=== PATIENT | female | born 1945 | race Caucasian/White ===

== ENCOUNTER 2017-01-11 08:58 | Outpatient (CLI) | payer MEDICARE, OTHER | END 2017-01-11 08:59 | disposition home or self-care (01) | LOC: NS 08:58 | PROVIDERS: ATTEND Internal Medicine | DX: Z71.3 Dietary counseling and surveillance (principal); E11.9 Type 2 diabetes mellitus without complications; Z68.38 Body mass index [BMI] 38.0-38.9, adult | CPT/HCPCS: 97802 ==

== ENCOUNTER 2017-08-20 16:57 | Outpatient (CLI) | payer MEDICARE, OTHER ==
[2017-08-20 18:05] LABS: BASOPHILS % (AUTO) 0.3 %; EOSINOPHILS # (AUTO) 0.1 10^3/uL (0.0-0.7); EOSINOPHILS % (AUTO) 1.7 %; HGB - HEMOGLOBIN 14.2 g/dL (12.0-16.0); LYMPHOCYTES # (AUTO) 1.8 10^3/uL (1.5-3.5); LYMPHOCYTES % (AUTO) 26.9 %; MEAN CORPUSCULAR HEMOGLOBIN 34.7 pg (27.0-31.0); MEAN CORPUSCULAR HGB CONC 34.8 g/dL (32.0-36.0); MEAN CORPUSCULAR VOLUME 99.7 fL (81.0-99.0); MEAN PLATELET VOLUME 9.4 fL (7.9-10.8); MONOCYTES # (AUTO) 0.6 10^3/uL (0.0-1.0); NEUTROPHILS # (AUTO) 4.2 10^3/uL (1.5-6.6); NEUTROPHILS % (AUTO) 62.1 %; PLT - PLATELET COUNT 127 10^3/uL (130-450); RED BLOOD COUNT 4.08 10^6/uL (4.20-5.40); RED CELL DISTRIBUTION WIDTH 14.1 % (12.0-15.0); WHITE BLOOD COUNT 6.8 x10^3/uL (4.8-10.8)
[2017-08-20 18:16] LABS: ALBUMIN 3.8 g/dL (3.2-5.5); ALBUMIN/GLOBULIN RATIO 1.1 (1.0-2.2); BILIRUBIN,TOTAL 1.1 mg/dL (0.2-1.0); CALCIUM 9.4 mg/dL (8.5-10.3); CREATININE 0.7 mg/dL (0.4-1.0); TOTAL PROTEIN 7.3 g/dL (6.7-8.2)
[2017-08-20 18:47] LABS: HB2 TOTAL 15.4 g/dL; HEMOGLOBIN A1C 1.34 g/dL; HEMOGLOBIN A1C % 10.1 % (4.6-6.2)
[2017-08-20 19:35] LABS: THYROID STIMULATING HORMONE 1.84 uIU/mL (0.34-5.60)
== END 2017-08-20 16:58 | disposition home or self-care (01) ==
LOC: LAB 16:57
PROVIDERS: ATTEND Internal Medicine
DX: R60.9 Edema, unspecified (principal); E11.9 Type 2 diabetes mellitus without complications; R06.00 Dyspnea, unspecified; R63.5 Abnormal weight gain; G62.9 Polyneuropathy, unspecified; R20.2 Paresthesia of skin; I10 Essential (primary) hypertension; R06.01 Orthopnea
CPT/HCPCS: 36415; 80053; 82607; 83036; 83880; 84443; 85025

== ENCOUNTER 2018-09-09 17:20 | Outpatient (CLI) | payer MEDICARE, OTHER ==
--- NOTE | 2018-09-10 10:05 | XRAY Report ---
Reason: HEMOPTYSIS Procedure Date: 09/09/2018 Accession Number: [id number] / [id number] Procedure: XR - Chest 2 View X-Ray CPT Code: 36569 FULL RESULT: EXAM: CHEST RADIOGRAPHY EXAM DATE: 09/09/2018 05:39 PM. CLINICAL HISTORY: Hemoptysis. COMPARISON: XR CHEST PA AND LAT 12/31/2008 10:32 AM. TECHNIQUE: 2 views. FINDINGS: Lungs/Pleura: Linear appearing density in the posterior lung base on lateral view, nonspecific but favor appearance of subsegmental atelectasis. No pleural effusion. No pneumothorax. Normal volumes. Mediastinum: The cardiac silhouette is enlarged, new compared to 2008. Other: None. IMPRESSION: Interval development of cardiomegaly. Linear airspace opacities at the lung base posteriorly, atelectasis versus less likely early airspace disease. RADIA
== END 2018-09-09 17:21 | disposition home or self-care (01) ==
LOC: DI 17:20
PROVIDERS: ATTEND Internal Medicine
DX: R04.2 Hemoptysis (principal); R91.8 Other nonspecific abnormal finding of lung field; I51.7 Cardiomegaly
CPT/HCPCS: 71046

== ENCOUNTER 2018-10-14 12:12 | Outpatient (CLI) | payer MEDICARE, OTHER ==
[2018-10-14 12:44] LABS: BASOPHILS % (AUTO) 0.5 %; EOSINOPHILS # (AUTO) 0.3 10^3/uL (0.0-0.7); EOSINOPHILS % (AUTO) 4.2 %; HGB - HEMOGLOBIN 13.4 g/dL (12.0-16.0); LYMPHOCYTES # (AUTO) 1.5 10^3/uL (1.5-3.5); LYMPHOCYTES % (AUTO) 22.9 %; MEAN CORPUSCULAR HEMOGLOBIN 33.3 pg (27.0-31.0); MEAN CORPUSCULAR VOLUME 97.8 fL (81.0-99.0); MEAN PLATELET VOLUME 10.5 fL (7.9-10.8); MONOCYTES # (AUTO) 0.7 10^3/uL (0.0-1.0); MONOCYTES % (AUTO) 9.9 %; NEUTROPHILS # (AUTO) 4.1 10^3/uL (1.5-6.6); NEUTROPHILS % (AUTO) 62.2 %; PLT - PLATELET COUNT 134 10^3/uL (130-450); RED BLOOD COUNT 4.03 10^6/uL (4.20-5.40); RED CELL DISTRIBUTION WIDTH 13.7 % (12.0-15.0); WHITE BLOOD COUNT 6.6 x10^3/uL (4.8-10.8)
[2018-10-14 13:03] LABS: ALBUMIN 3.9 g/dL (3.2-5.5); ALBUMIN/GLOBULIN RATIO 1.1 (1.0-2.2); BILIRUBIN,TOTAL 1.4 mg/dL (0.2-1.0); CALCIUM 9.3 mg/dL (8.5-10.3); CREATININE 0.7 mg/dL (0.4-1.0); TOTAL PROTEIN 7.6 g/dL (6.7-8.2)
[2018-10-14 13:09] LABS: HB2 TOTAL 15.2 g/dL; HEMOGLOBIN A1C 1.16 g/dL; HEMOGLOBIN A1C % 9.1 % (4.6-6.2)
[2018-10-14 13:51] LABS: THYROID STIMULATING HORMONE 3.15 uIU/mL (0.34-5.60)
[2018-10-14 14:25] LABS: BILIRUBIN,URINE NEGATIVE (NEGATIVE); GLUCOSE, URINE (UA) NEGATIVE (NEGATIVE); KETONES,URINE (UA) NEGATIVE (NEGATIVE); LEUKOCYTE ESTERASE, URINE NEGATIVE (NEGATIVE); NITRITE,URINE NEGATIVE (NEGATIVE); OCCULT BLOOD,URINE TRACE-INTA (NEGATIVE); PROTEIN,URINE NEGATIVE (NEGATIVE); UROBILINOGEN,URINE 0.2 (NORMAL) E.U./dL (NORMAL)
[2018-10-14 14:30] LABS: CLARITY,URINE CLEAR (CLEAR)
== END 2018-10-14 12:13 | disposition home or self-care (01) ==
LOC: LAB 12:12
PROVIDERS: ATTEND Internal Medicine
DX: R60.9 Edema, unspecified (principal); E11.9 Type 2 diabetes mellitus without complications; Z79.899 Other long term (current) drug therapy
CPT/HCPCS: 36415; 80053; 81001; 81003; 82607; 83036; 83880; 84443; 85025; 87086

== ENCOUNTER 2019-04-15 13:14 | Outpatient (CLI) | payer MEDICARE, OTHER | END 2019-04-15 13:15 | disposition home or self-care (01) | LOC: DI 13:14 | PROVIDERS: ATTEND Internal Medicine | DX: I27.20 Pulmonary hypertension, unspecified (principal); I50.40 Unspecified combined systolic (congestive) and diastolic (congestive) heart failure | CPT/HCPCS: 93306 ==

== ENCOUNTER 2019-09-08 16:35 | Inpatient (IN) | payer MEDICARE, OTHER ==
[2019-09-08 17:24] LABS: BASOPHILS % (AUTO) 0.4 %; EOSINOPHILS % (AUTO) 0.4 %; HGB - HEMOGLOBIN 9.8 g/dL (12.0-16.0); LYMPHOCYTES # (AUTO) 1.7 10^3/uL (1.5-3.5); LYMPHOCYTES % (AUTO) 16.8 %; MEAN CORPUSCULAR HEMOGLOBIN 32.7 pg (27.0-31.0); MEAN PLATELET VOLUME 10.6 fL (7.9-10.8); MONOCYTES # (AUTO) 0.9 10^3/uL (0.0-1.0); MONOCYTES % (AUTO) 8.2 %; NEUTROPHILS # (AUTO) 7.6 10^3/uL (1.5-6.6); NEUTROPHILS % (AUTO) 73.7 %; PLT - PLATELET COUNT 165 10^3/uL (130-450); RED CELL DISTRIBUTION WIDTH 14.4 % (12.0-15.0); WHITE BLOOD COUNT 10.3 x10^3/uL (4.8-10.8)
[2019-09-08 17:31] LABS: INR 1.4 (0.8-1.2); PT - PROTHROMBIN TIME 16.1 secs (9.9-12.6)
[2019-09-08 17:35] LABS: BILIRUBIN,TOTAL 1.4 mg/dL (0.2-1.0); CALCIUM 8.3 mg/dL (8.5-10.3); CREATININE 0.9 mg/dL (0.4-1.0); TOTAL PROTEIN 6.1 g/dL (6.7-8.2)
[2019-09-08 17:39] LABS: PARTIAL THROMBOPLASTIN TIME 27.5 secs (24.9-33.3)
--- NOTE | 2019-09-08 17:39 | ED Physician Documentation ---
History of Present Illness - Stated complaint Stated Complaint: BLOODY STOOLS - Chief complaint Chief Complaint: Abd Pain - History obtained from History obtained from: Patient - History of Present Illness Timing: Prior to arrival, How many hours ago (10) Pain level max: 0 Pain level now: 0 - Additonal information Additional information: 74-year-old female presents to the emergency department at the behest of her primary care provider when she presented for acute onset black and bloody stools that began this a.m. Per patient she had been in usual state of health without fevers when she began to have some mild abdominal discomfort and nausea and then began having black and now frankly bloody loose stools Patient has never had loose stools like this before she has a remote history of H. pylori infection but that was greater than 20 years ago. She does have a history of previous EGD and colonoscopy. The results are unknown. Unknown if she has a history of diverticulitis. no anticoagulation, though she does take an occasional NSAID medication Patient denies chest pain feeling short of breath feeling faint or lightheaded. Review of Systems Constitutional: denies: Fever Cardiac: denies: Chest pain / pressure, Palpitations, Pedal edema, Calf pain Respiratory: denies: Dyspnea, Cough, Hemoptysis, Wheezing GI: reports: Nausea, Diarrhea, Bloody / black stool. denies: Abdominal Pain, Vomiting : denies: Dysuria Skin: reports: Rash, Lesions Neurologic: denies: Generalized weakness, Syncope, Seizure, Confused, Headache Psychiatric: denies: Depressed, Suicidal PD PAST MEDICAL HISTORY - Present Medications Home Medications: Ambulatory Orders Medication Instructions Recorded Confirmed Amlodipine Besylate 10 mg PO DAILY 09/08/19 09/08/19 Cholecalciferol (Vitamin D3) 25 mcg PO DAILY 09/08/19 09/08/19 [Vitamin D3] Insulin Glargine [Lantus Solostar] 90 unit SQ BID 09/08/19 09/08/19 Lisinopril [Zestril] 40 mg PO BID 09/08/19 09/08/19 Metformin HCl [Metformin HCl ER] 500 mg PO BID 09/08/19 09/08/19 Metoprolol Tartrate 25 mg PO BID 09/08/19 09/08/19 - Allergies Allergies/Adverse Reactions: Allergies Allergy/AdvReac Type Severity Reaction Status Date / Time No Known Drug Allergies Allergy Verified 09/08/19 16:56 PD ED PE NORMAL - General General: Alert and oriented X 3, No acute distress, Well developed/nourished, Other (obese) - HEENT HEENT: PERRL, EOMI - Neck Neck: Supple, no meningeal sign, No adenopathy - Cardiac Cardiac: RRR, No murmur - Respiratory Respiratory: No respiratory distress - Abdomen Abdomen: Other (Hyperactive bowel sounds. No focal tenderness or rebound/guarding. ) - Rectal Rectal: Other (Tyree hematochezia with digital rectal exam. Nontender.) - Derm Derm: Normal color, Warm and dry, No rash Results - Vitals Vitals: Vital Signs - 24 hr 09/08/19 09/08/19 09/08/19 16:56 17:15 19:41 Temperature 36.1 C L Heart Rate 88 82 77 Respiratory 16 20 16 Rate Blood Pressure 125/62 127/53 L 126/52 L O2 Saturation 96 98 100 Oxygen O2 Source Room air - Labs Labs: Laboratory Tests 09/08/19 09/08/19 09/08/19 17:19 17:19 17:19 WBC 10.3 RBC 3.00 L Hgb 9.8 L Hct 29.7 L MCV 99.0 MCH 32.7 H MCHC 33.0 RDW 14.4 Plt Count 165 MPV 10.6 Neut # (Auto) 7.6 H Lymph # (Auto) 1.7 Phillips # (Auto) 0.9 Eos # (Auto) 0.0 Baso # (Auto) 0.0 Absolute Nucleated RBC 0.00 Nucleated RBC % 0.0 PT 16.1 H INR 1.4 H APTT 27.5 Sodium Potassium Chloride Carbon Dioxide Anion Gap BUN Creatinine Estimated GFR (MDRD) Glucose Glycated Hemoglobin Estim Average Glucose Calcium Total Bilirubin AST ALT Alkaline Phosphatase Total Protein Albumin Globulin Albumin/Globulin Ratio Lipase Blood Type A POSITIVE Blood Type Recheck Antibody Screen NEGATIVE 09/08/19 09/08/19 09/08/19 17:19 18:17 19:41 WBC 11.9 H RBC 2.80 L Hgb 9.3 L Hct 27.9 L MCV 99.6 H MCH 33.2 H MCHC 33.3 RDW 14.4 Plt Count 169 MPV 11.0 H Neut # (Auto) Lymph # (Auto) Phillips # (Auto) Eos # (Auto) Baso # (Auto) Absolute Nucleated RBC Nucleated RBC % PT INR APTT Sodium 138 Potassium 4.6 Chloride 98 L Carbon Dioxide 29 Anion Gap 11.0 BUN 31 H Creatinine 0.9 Estimated GFR (MDRD) 61 L Glucose 144 H Glycated Hemoglobin Estim Average Glucose Calcium 8.3 L Total Bilirubin 1.4 H AST 31 ALT 25 Alkaline Phosphatase 57 Total Protein 6.1 L Albumin 3.0 L Globulin 3.1 Albumin/Globulin Ratio 1.0 Lipase 21 L Blood Type Blood Type Recheck A POSITIVE Antibody Screen 09/08/19 19:41 WBC RBC Hgb Hct MCV MCH MCHC RDW Plt Count MPV Neut # (Auto) Lymph # (Auto) Phillips # (Auto) Eos # (Auto) Baso # (Auto) Absolute Nucleated RBC Nucleated RBC % PT INR APTT Sodium Potassium Chloride Carbon Dioxide Anion Gap BUN Creatinine Estimated GFR (MDRD) Glucose Glycated Hemoglobin 7.8 H Estim Average Glucose 177 H Calcium Total Bilirubin AST ALT Alkaline Phosphatase Total Protein Albumin Globulin Albumin/Globulin Ratio Lipase Blood Type Blood Type Recheck Antibody Screen - Rads (name of study) CT Angio abd/pelvis Radiology: Final report received (Abnormal small bowel loops may indicate enteritis. Inflammatory bowel disease less likely ischemia given patient vasculature.Sigmoid diverticulosis. No definitive colonic source of bleeding. Nonspecific minor inflammation in the right paracolic gutter adjacent to appendix. ? early appendicitis) PD MEDICAL DECISION MAKING - ED course Complexity details: reviewed results, re-evaluated patient, d/w patient ED course: 74-year-old female presents the emergency department with acute onset of melena and now hematochezia that began today. no hx of similar. - CT scan is concerning for some enteritis however there was no finding for definitive colonic source of bleeding.There is a question if she may have a mild early appendicitis. - Patient has not been shocky. Her lactic acid is however 3.8. She has been rep-leated with 1 liter IVF in the ED. Her blood pressure and heart rate have been stable. - pt has had at lead 4 episodes of brisk hemtochezia here in the ED. Repeat hgb is 9.3 - Patient was given 1 g of Tranzemic acid here in the emergency department - I have spoken with the Hospitalist Dr. Ye who has agreed to see and admit patient - I have also spoke with Dr. Reece with general surgery who has agreed to consult ont he patient. She remain hemodynamically stable Departure - Departure Disposition: [facility] DC/Xfer Clinical Impression: Hematochezia GI bleed Qualifiers: GI bleed type/associated pathology: unspecified gastrointestinal hemorrhage type Qualified Code(s): K92.2 - Gastrointestinal hemorrhage, unspecified Discharge Date/Time: 09/08/19 21:05
[2019-09-08] MEDS ORDERED: IOVERSOL 320 100 ML VIAL IVP ONE ×2 (17:50→18:45)
[2019-09-08] MEDS ORDERED: TRANEXAMIC ACID 1,000 MG in SODIUM CHLORIDE 0.9% 100ML 100 ML IV STA (19:02)
--- NOTE | 2019-09-08 19:26 | CT Report ---
PROCEDURE: ANGIO ABDOMEN/PELVIS W INDICATIONS: hematochezia CONTRAST: IV CONTRAST: Optiray 320 ml: 100 PO CONTRAST: *NO PO CONTRAST TECHNIQUE: After the administration of intravenous contrast, 2 and 5 mm sections acquired from the diaphragm to the iliac crests. 3-dimensional maximum intensity projection (MIP) coronal and sagittal reformats, a nd/or 3-dimensional volume rendering reformatting was then performed. For radiation dose reduction, the following was used: automated exposure control, adjustment of mA and/or kV according to patient size. COMPARISON: CT abdomen pelvis 05/31/2015 FINDINGS: Image quality: Excellent. Extravascular tissues: Lung bases are demonstrate stable nodules in the right medial lung base, and moderate cardiomegaly. Small hiatal hernia is present. Micronodular liver margin prominently involving the caudal left and right hepatic lobes. Mild caudate lobe hypertrophy. Cholecystectomy. Normal adrenal glands. Spleen is minimally enlarged at 13.3 cm. N ormal pancreas. 10 mm round calcification in the left lower pole intrarenal collecting system. Puncta te right mid pole collecting system calcification. There are a few loops of prominent mid to left abdominal small bowel containing air-fluid levels. The appendix does not appear to be enlarged, however there is mild inflammation along the right paracoli c gutter adjacent to the appendix. Small amount of free pelvic fluid. The colon is largely decompress ed. A few sigmoid colonic diverticula are seen. No acute pericolonic inflammation. Mild anasarca of the anterior lower abdominal body wall and subdermal soft tissues. Degenerative [place] ges in the thoracic and lumbar spine. Abdominal aorta: Normal caliber throughout its course. Trace calcification. Widely patent iliac brooke henrique. Mesenteric arteries: Widely patent origins of the celiac and superior mesenteric arteries. No calcif ied or noncalcified stenoses. The inferior mesenteric artery is patent. Renal arteries: Dual right renal arteries. Single left renal artery. No stenoses. IMPRESSION: 1. Abnormal small bowel loops may indicate enteritis, inflammatory bowel disease, less likely ischemi a given patent vasculature. Alternatively, this may be reactive to an occult source of bleeding. 2. Sigmoid diverticulosis. No other definite colonic source of bleeding. 3. Nonspecific, minor inflammation in the right paracolic gutter adjacent to an otherwise normal-appe aring appendix. Findings are equivocal for mild, early, acute appendicitis. 4. Cirrhotic liver. Correlate with patient's LFTs albumin, and platelet count. 5. Widely patent abdominal aorta and branches. Reviewed by: Marianne Galvez MD on 09/08/2019 7:24 PM PDT Approved by: Marianne Galvez MD on 09/08/2019 7:24 PM PDT Station ID: [id number]
[2019-09-08 19:46] LABS: HGB - HEMOGLOBIN 9.3 g/dL (12.0-16.0); MEAN CORPUSCULAR HEMOGLOBIN 33.2 pg (27.0-31.0); MEAN CORPUSCULAR HGB CONC 33.3 g/dL (32.0-36.0); MEAN CORPUSCULAR VOLUME 99.6 fL (81.0-99.0); RED BLOOD COUNT 2.8 10^6/uL (4.20-5.40); RED CELL DISTRIBUTION WIDTH 14.4 % (12.0-15.0); WHITE BLOOD COUNT 11.9 x10^3/uL (4.8-10.8)
[2019-09-08] MEDS ORDERED: ONDANSETRON 4 MG/2 ML VIAL IVP PRN (20:02)
[2019-09-08] MEDS ORDERED: ONDANSETRON ODT 4 MG TABLET TL PRN (20:02)
[2019-09-08 20:32] LABS: HB2 TOTAL 9.6 g/dL; HEMOGLOBIN A1C 0.59 g/dL; HEMOGLOBIN A1C % 7.8 % (4.6-6.2)
--- NOTE | 2019-09-08 20:34 | HISTORY & PHYSICAL EXAMINATION ---
Chief Complaint - Chief Complaint Chief Complaint: dark stool History of Present Illness - Admitted From Admitted From:: Home/ER - History Obtained From Records Reviewed: [facility] History obtained from: patient and MICHELLE Hubbard Exam Limitations: none - History of Present Illness HPI Comment/Other: The patient is a 74-year-old white female who has a history of hypertension and hyperlipidemia and diabetes with obstructive sleep apnea whose previous abdominal history consist of hysterectomy, and an episode of severe abdominal pain resulting in a CT scan of the abdomen in May 2015. Other than diverticulosis, nonobstructing renal stones, nothing was found. Yesterday she started having some nausea. Did not feel well but no fever, chills. There is no one sick in her family. She has had no recent travel. She has a previous EGD and colonoscopy that have been normal. Into the evening and last night she had abdominal discomfort with nausea and some cramping. This morning she began having black stool and went to her primary care provider office with a sample of the stool. It was melena, OB positive. She was sent to our emergency room where she was evaluated by nurse practitioner Renzo. She was afebrile at 36.1. Pulse was 88. Normotensive at 125/62. 96% on room air. She had hyperactive bowel sounds. No focal tenderness, rebound or guarding.Abdomen and pelvis CT with angiogram does not show any active bleeding. She has a micronodular liver compatible with cirrhosis. She has prominent mid to left abdominal small bowel containing air-fluid levels. Mild inflammation along the right paracolic gutter adjacent to the appendix. The colon is decompressed. A few colonic sigmoid diverticula. No acute pericolonic inflammation. Mild anasarca of the lower anterior abdominal body wall. History - Past Medical History Cardiovascular: reports: Hypertension, High cholesterol Respiratory: reports: Shortness of breath, Sleep apnea (Mild and not needing CPAP), Other (Shortness of breath was evaluated with an echo April 15, 2019. Normal LV cavity size with mild concentric left ventricular hypertrophy and normal systolic function with LVEF 65 to 75%. No regional wall motion abnormalities. Normal right ventricle. Normal atria. Aortic sclerosis without steno) Neuro: reports: None Endocrine/Autoimmune: reports: Type 2 diabetes GI: reports: Chronic diarrhea (Up to 3 bowel movements a day of loose stool on a regular basis, possibly due to metformin), Other (Diverticulosis) SUBMARINE ELEMENT COORDINATOR: reports: Other (G1, P1) : reports: Incontinence, Frequency HEENT: reports: Other (Asymmetric retinal exam. Carotid Dopplers done for evaluation and were negative for stenosis July 2015) Psych: reports: None Musculoskeletal: reports: Osteoarthritis Derm: reports: None MRSA Hx?: No - Past Surgical History General: reports: Cholecystectomy - Family & Social History Family History Comment/Other: Her father of a brain aneurysm but had alcoholic liver disease before he with cirrhosis. Mom of a heart attack at age 72. 1 sister is healthy. One daughter is healthy Living arrangement: At home Living Situation: With spouse/s.o. Social History Notes: for 52 years to her first . She never smoked. Rarely drank. Has no history of recreational substance abuse. - Substance History Use: Uses substance without health or social issues: NONE Abuse: Recurrent use of substance despite neg consequences: NONE Dependence: Experiences withdrawal or developed tolerances: NONE - POLST Patient has POLST: No POLST Status: Full Code Meds/Allgy - Home Medications Home Medications: Ambulatory Orders Medication Instructions Recorded Confirmed Amlodipine Besylate 10 mg PO DAILY 09/08/19 09/08/19 Cholecalciferol (Vitamin D3) 25 mcg PO DAILY 09/08/19 09/08/19 [Vitamin D3] Insulin Glargine [Lantus Solostar] 90 unit SQ BID 09/08/19 09/08/19 Lisinopril [Zestril] 40 mg PO BID 09/08/19 09/08/19 Metformin HCl [Metformin HCl ER] 500 mg PO BID 09/08/19 09/08/19 Metoprolol Tartrate 25 mg PO BID 09/08/19 09/08/19 - Allergies Allergies/Adverse Reactions: Allergies Allergy/AdvReac Type Severity Reaction Status Date / Time No Known Drug Allergies Allergy Verified 09/08/19 16:56 Review of Systems - Constitutional Constitutional: reports: Fatigue, Malaise, Weight gain, Other (For the last few months there is been a lot of stress in her life with her best friend in [place] dying of metastatic breast cancer 2 days ago. And her son-in-law has metastatic lung cancer and is also dying. She stress eats so she has been ea ting everything in sight and gaining weight. She is) - Eyes Eyes: reports: Corrective lenses. denies: Pain, Irritation, Amaurosis, Blurred vision - Ears, Nose & Throat Ears, Nose & Throat: reports: Hearing loss. denies: Ear pain, Hearing aids, Tinnitus, Vertigo, Nasal obstruction, Nasal congestion, Postnasal drainage, Sore throat - Cardiovascular Cariovascular: reports: Exertional dyspnea (Because she is been so cold and tired, and getting so fatigued she told Dr. Ivan she was getting short of breath. An echocardiogram was done in April 2019 and she has mild pulmonary hypertension). denies: Irregular heart rate, Palpitations, Chest pain, Edema, Syncope - Respiratory Respiratory: denies: Cough, Sputum production, Wheezing, Snoring - Gastrointestinal Gastrointestinal: reports: Abdominal pain (More of a cramping that is mild and diffuse in the lower pelvic area starting today. Severe urge to defecate today with multiple, multiple bloody bowel movements.), Diarrhea (Diarrhea is chronic. Ongoing for many many years. Up to 3 loose BMs a day.), Black stools, Bloody stools, Nausea, Reflux/heartburn (Chronic and unchanged. EGD so long ago she cannot remember what it was done.). denies: Abdominal distention, Constipation, Vomiting, Bile emesis - Genitourinary Genitourinary: reports: Urgency, Incontinence. denies: Dysuria, Frequency, He maturia, Flank pain, Nocturia, Urethral discharge - Musculoskeletal Musculoskeletal: reports: Muscle aches, Stiffness, Other (Is starting to get harder and harder to get in and out of a car. She just cannot make her legs bend to bring them into the car. If she does manage to get him into the car, then getting out and over the lip of the seat takes her forever. She is not taking very good care of herself because she is s). denies: Muscle pain, Back pain - Integumentary Integumentary: reports: Other (The skin of her lower shins and around her feet and ankles is getting very thick, dry, and cracked). denies: Rash, Pruritis, Lesions - Neurological Neurological: reports: General weakness. denies: Focal weakness, Headache, Dizziness, Numbness, Memory problems - Psychiatric Psychiatric: reports: Anxiety. denies: Depression, Suicidal - Endocrine Endocrine: reports: Intolerance to cold. denies: Polyuria, Polydypsia, Polyphagia - Hematologic/Lymphatic Hematologic/Lymphatic: denies: Anemia, Bruising, Petechiae Prior Level of Functionality: In the last few months it is getting harder and harder to bathe her self, and keep the house tidy. She still able to do it but she recognizes that her hygiene is starting to suffer especially perineal area and her legs and feet because she cannot reach them. But she is still able to dress herself, feed herself. She does not use a cane or a walker. She and her are still cooking and cleaning the house together. But she is in tears because she feels like she is not can to be able to do it much longer. Exam - Vital Signs Reviewed Vital Signs: Yes Vital Signs: Vital Signs x48h Temp Pulse Resp BP Pulse Ox 09/08/19 20:28 77 18 101/47 L 98 09/08/19 19:41 77 16 126/52 L 100 09/08/19 17:15 82 20 127/53 L 98 09/08/19 16:56 36.1 C L 88 16 125/62 96 - Physical Exam General Appearance: positive: Alert, Mild distress (She is tearful, and fearful. She is scared that she is going to have an abdominal surgery and that she will get out of the hospital ever again), Anxious, Other ( is at the bedside.She is a 5 foot 2 inch female who is 105.5 kg.) Eyes Bilateral: positive: PERRL, Other (Wearing glasses.) ENT: positive: Pharynx nml Neck: positive: No JVD. negative: Stiff neck, Carotid bruit Respiratory: positive: Chest non-tender. negative: Wheezes, Rales, Rhonchi Cardiovascular: positive: Regular rate & rhythm, Systolic murmur. negative: Gallop/S4, Friction rub Peripheral Pulses: positive: 1+ Abdomen: positive: Tenderness (Mild and diffuse but mainly in the upper abdomen.), Abnml bowel sounds (Hyperactive). negative: Guarding, Rebound, Hepatomegaly, Splenomegaly Rectal: positive: Stool - heme POS, Bloody stool Skin: positive: Warm, Dry, Other (The skin around her lower manuel, calves, Achilles, and top of feet and around the malleoli is white, thickened, hyperkeratotic. No open lesions. No cellulitis.) Conclusion/Plan - Problem List (1) GI bleed Conclusion/Plan: This is a patient has a previous history of diverticulosis on colonoscopy. No other pathology. No antecedent abdominal pain, or weight loss but does have chronic diarrhea that may be from metformin. Now presents with abrupt melena followed by hematochezia. She is a lady who is hypertensive and is on amlodipine, metoprolol, and lisinopril. Systolic blood pressure is in the 120s and came down to 101. Not tachycardic. So so far she is hemodynamically stable with this bleeding. Normal hemoglobin for her is 14 g. She presents at 9.8. Differential diagnosis would include ischemic bowel, diverticular bleed, small bowel enteritis is seen on CT, or infectious diarrhea. So further work-up is leaning toward enteritis versus infectious diarrhea. Low on my possibility is that of an upper GI bleed such as from gastric ulcers or esophageal varices. She does have cirrhosis on CT abd, but platelets are normal, no macrocytic indices. High she is not a drinker. If she does have cirrhosis it is going to be from fatty liver I would think. Plan: Inpatient status Surgery consult NG lavage and see if blood in stomach Every 6 hour hemoglobin Type and screen for 2 units Submit stool for culture and sensitivity Clear liquid diet Proton pump inhibitors even though I suspect this is lower GI not upper GI Qualifiers: GI bleed type/associated pathology: unspecified gastrointestinal hemorrhage type Qualified Code(s): K92.2 - Gastrointestinal hemorrhage, unspecified (2) Anemia due to acute blood loss Conclusion/Plan: Type and screen. Transfuse if she drops below 7 to 8 g of hemoglobin. (3) Hypertension Conclusion/Plan: Because she is relatively normal with her blood pressure right now, if not mildly hypotensive, medications will be held at this time. We will continue to monitor and resume those medications if she gets hypertensive. Qualifiers: Hypertension type: essential hypertension Qualified Code(s): I10 - Essential (primary) hypertension (4) Controlled type 2 diabetes mellitus without complication, with long-term current use of insulin Conclusion/Plan: Clear liquid diet. Resume Lantus 10 units at night not her usual 90 twice a day Sliding scale insulin before meals Check A1c (5) Obstructive sleep apnea Conclusion/Plan: Will monitor for snoring. If she has episodes of apnea as witnessed by nursing will put an overnight oximetry on her. She states that her apnea was mild and she did not need a facemask. (6) Anxiety about health Conclusion/Plan: Poor unfortunate lady. She is tearful. Terrified that she is going to have "some surgery" and that "I am never going to get out of here". I have reassured her as much as I can. I told her that she does have a serious problem but at this time it is not life-threatening. That she is in good hands. We will continue to monitor frequently. (7) Cold intolerance Conclusion/Plan: With thick hyperkeratotic skin of legs. Weight gain. TSH was normal in October 2018. We will recheck with this visit. (8) Acidosis, lactic Conclusion/Plan: At this time, however, not hemodynamically unstable so I do not think her lactic acidosis is from sepsis. I think more is from liver disease and metformin.Will hydrate with 2 L of fluid, recheck lactic acid level. We will also hold her metformin. (9) Home help needed Conclusion/Plan: With her slowing down, comorbidities, she would be at risk needing care. But she hates to be a burden. She wants to take care of people and not have them take care of her. Recommendations: Cardiopulmonary rehab to increase cardiovascular endurance Start hiring somebody to come help her take a bath 3 times a week. She thinks she could do that Social work consult to see if there are any resources that are available for her she and her - Lab Results Lab results reviewed: Yes Fish Bones: 09/08/19 19:41 09/08/19 17:19 - Diagnostic Imaging Results Diagnostic Imaging Results: positive: Final report reviewed (ranger) Core Measures - Anticipated LOS I expect patient to be DC'd or transferred within 96 hours.: Yes - DVT/VTE - Prophylaxis VTE/DVT Device ordered at admit?: Yes
[2019-09-08] MEDS ORDERED: INSULIN GLARGINE 300 UNIT/3 ML PEN SUBQ SCH ×2 (21:00)
--- NOTE | 2019-09-08 22:09 | HISTORY & PHYSICAL EXAMINATION ---
Chief Complaint - Chief Complaint Chief Complaint: passing blood per rectum today. dark and then burgandy GI Bleed Admit Template - History Obtained From History obtained from: Patient Exam limitations: No limitations - History of Present Illness Severity at the worst: reports: Mild Bleeding quality: reports: Other (as above) Context-bleeding started w/: reports: Spontaneous Timing: reports: Abrupt onset (this am) Duration: reports: Other (all day. multiple small bloody bms) Associated symptoms: reports: Other (she states she has not felt well for many months. has gained weight over the last year and can have significant leg swelling) HPI Comment/Other: She has distant history of EGD and colonoscopy. She states she has had IBS symptoms her whole life. H pylori was found and treated. She denies recent stomach symptoms PMH/PSH - Past Medical History Cardiovascular: positive: Hypertension, High cholesterol Respiratory: positive: Shortness of breath, Sleep apnea (Mild and not needing CPAP), Other (Shortness of breath was evaluated with an echo April 15, 2019. Normal LV cavity size with mild concentric left ventricular hypertrophy and normal systolic function with LVEF 65 to 75%. No regional wall motion abnormalities. Normal right ventricle. Normal atria. Aortic sclerosis without steno) Neuro: positive: None Endocrine/Autoimmune: positive: Type 2 diabetes GI: positive: Chronic diarrhea (Up to 3 bowel movements a day of loose stool on a regular basis, possibly due to metformin), Other (Diverticulosis) PAPER MAKER: positive: Other (G1, P1) : positive: Incontinence, Frequency HEENT: positive: Other (Asymmetric retinal exam. Carotid Dopplers done for evaluation and were negative for stenosis July 2015) Psych: positive: None Musculoskeletal: positive: Osteoarthritis Derm: positive: None MRSA Hx?: No - Past Surgical History General: positive: Cholecystectomy Social & Family Hx - Social History Smoking Status: Never smoker - POLST Patient has POLST: No POLST Status: Full Code Meds/Allgy - Home Medications Home Medications: Ambulatory Orders Medication Instructions Recorded Confirmed Amlodipine Besylate 10 mg PO DAILY 09/08/19 09/08/19 Cholecalciferol (Vitamin D3) 25 mcg PO DAILY 09/08/19 09/08/19 [Vitamin D3] Insulin Glargine [Lantus Solostar] 90 unit SQ BID 09/08/19 09/08/19 Lisinopril [Zestril] 40 mg PO BID 09/08/19 09/08/19 Metformin HCl [Metformin HCl ER] 500 mg PO BID 09/08/19 09/08/19 Metoprolol Tartrate 25 mg PO BID 09/08/19 09/08/19 - Allergies Allergies/Adverse Reactions: Allergies Allergy/AdvReac Type Severity Reaction Status Date / Time No Known Drug Allergies Allergy Verified 09/08/19 16:56 Review of Systems - Other Findings Other Findings: 10 pt ros as above and below otherwise unremarkable. vague not feeling well for months and edema Exam - Vital Signs Reviewed Vital Signs: Yes Vital Signs: Vital Signs x48h Temp Pulse Pulse Resp BP BP Pulse Ox 09/08/19 21:08 36.5 C 75 20 125/44 L 99 09/08/19 20:28 77 18 101/47 L 98 09/08/19 19:41 77 16 126/52 L 100 09/08/19 17:15 82 20 127/53 L 98 09/08/19 16:56 36.1 C L 88 16 125/62 96 - Physical Exam General Appearance: positive: Mild distress Eyes Bilateral: positive: Normal inspection, PERRL, EOMI Neck: positive: No JVD, Trachea midline Respiratory: positive: No respiratory distress Abdomen: positive: Non-tender, Other (anasarca including lower abdominal wall. no ventral hernias) Extremities: positive: Pedal edema, Other (edema lower abdominal wall to feet) Neurologic/Psychiatric: positive: Oriented x3 Results - Lab Results Fish Bones: 09/08/19 19:41 09/08/19 17:19 Other Lab Results: Lab Results x24hrs 09/08/19 09/08/19 09/08/19 Range/Units 20:13 19:41 19:41 WBC 11.9 H (4.8-10.8) x10^3/uL RBC 2.80 L (4.20-5.40) 10^6/uL Hgb 9.3 L (12.0-16.0) g/dL Hct 27.9 L (37.0-47.0) % MCV 99.6 H (81.0-99.0) fL MCH 33.2 H (27.0-31.0) pg MCHC 33.3 (32.0-36.0) g/dL RDW 14.4 (12.0-15.0) % Plt Count 169 (130-450) 10^3/uL MPV 11.0 H (7.9-10.8) fL Neut # (Auto) (1.5-6.6) 10^3/uL Lymph # (Auto) (1.5-3.5) 10^3/uL [place]th[place]omew # (Auto) (0.0-1.0) 10^3/uL Eos # (Auto) (0.0-0.7) 10^3/uL Baso # (Auto) (0.0-0.1) 10^3/uL Absolute Nucleated RBC x10^3/uL Nucleated RBC % /100WBC PT (9.9-12.6) secs INR (0.8-1.2) APTT (24.9-33.3) secs Sodium (135-145) mmol/L Potassium (3.5-5.0) mmol/L Chloride (101-111) mmol/L Carbon Dioxide (21-32) mmol/L Anion Gap (6-13) BUN (6-20) mg/dL Creatinine (0.4-1.0) mg/dL Estimated GFR (MDRD) (>89) Glucose (70-100) mg/dL Glycated Hemoglobin 7.8 H (4.6-6.2) % Estim Average Glucose 177 H (70-100) Lactic Acid 3.8 H* (0.5-2.2) mmol/L Calcium (8.5-10.3) mg/dL Total Bilirubin (0.2-1.0) mg/dL AST (10-42) IU/L ALT (10-60) IU/L Alkaline Phosphatase (42-121) IU/L Total Protein (6.7-8.2) g/dL Albumin (3.2-5.5) g/dL Globulin (2.1-4.2) g/dL Albumin/Globulin Ratio (1.0-2.2) Lipase (22-51) U/L Blood Type Blood Type Recheck Antibody Screen 09/08/19 09/08/19 09/08/19 Range/Units 18:17 17:19 17:19 WBC (4.8-10.8) x10^3/uL RBC (4.20-5.40) 10^6/uL Hgb (12.0-16.0) g/dL Hct (37.0-47.0) % MCV (81.0-99.0) fL MCH (27.0-31.0) pg MCHC (32.0-36.0) g/dL RDW (12.0-15.0) % Plt Count (130-450) 10^3/uL MPV (7.9-10.8) fL Neut # (Auto) (1.5-6.6) 10^3/uL Lymph # (Auto) (1.5-3.5) 10^3/uL Bartholomew # (Auto) (0.0-1.0) 10^3/uL Eos # (Auto) (0.0-0.7) 10^3/uL Baso # (Auto) (0.0-0.1) 10^3/uL Absolute Nucleated RBC x10^3/uL Nucleated RBC % /100WBC PT 16.1 H (9.9-12.6) secs INR 1.4 H (0.8-1.2) APTT 27.5 (24.9-33.3) secs Sodium 138 (135-145) mmol/L Potassium 4.6 (3.5-5.0) mmol/L Chloride 98 L (101-111) mmol/L Carbon Dioxide 29 (21-32) mmol/L Anion Gap 11.0 (6-13) BUN 31 H (6-20) mg/dL Creatinine 0.9 (0.4-1.0) mg/dL Estimated GFR (MDRD) 61 L (>89) Glucose 144 H (70-100) mg/dL Glycated Hemoglobin (4.6-6.2) % Estim Average Glucose (70-100) Lactic Acid (0.5-2.2) mmol/L Calcium 8.3 L (8.5-10.3) mg/dL Total Bilirubin 1.4 H (0.2-1.0) mg/dL AST 31 (10-42) IU/L ALT 25 (10-60) IU/L Alkaline Phosphatase 57 (42-121) IU/L Total Protein 6.1 L (6.7-8.2) g/dL Albumin 3.0 L (3.2-5.5) g/dL Globulin 3.1 (2.1-4.2) g/dL Albumin/Globulin Ratio 1.0 (1.0-2.2) Lipase 21 L (22-51) U/L Blood Type Blood Type Recheck A POSITIVE Antibody Screen 09/08/19 09/08/19 Range/Units 17:19 17:19 WBC 10.3 (4.8-10.8) x10^3/uL RBC 3.00 L (4.20-5.40) 10^6/uL Hgb 9.8 L (12.0-16.0) g/dL Hct 29.7 L (37.0-47.0) % MCV 99.0 (81.0-99.0) fL MCH 32.7 H (27.0-31.0) pg MCHC 33.0 (32.0-36.0) g/dL RDW 14.4 (12.0-15.0) % Plt Count 165 (130-450) 10^3/uL MPV 10.6 (7.9-10.8) fL Neut # (Auto) 7.6 H (1.5-6.6) 10^3/uL Lymph # (Auto) 1.7 (1.5-3.5) 10^3/uL Bartholomew # (Auto) 0.9 (0.0-1.0) 10^3/uL Eos # (Auto) 0.0 (0.0-0.7) 10^3/uL Baso # (Auto) 0.0 (0.0-0.1) 10^3/uL Absolute Nucleated RBC 0.00 x10^3/uL Nucleated RBC % 0.0 /100WBC PT (9.9-12.6) secs INR (0.8-1.2) APTT (24.9-33.3) secs Sodium (135-145) mmol/L Potassium (3.5-5.0) mmol/L Chloride (101-111) mmol/L Carbon Dioxide (21-32) mmol/L Anion Gap (6-13) BUN (6-20) mg/dL Creatinine (0.4-1.0) mg/dL Estimated GFR (MDRD) (>89) Glucose (70-100) mg/dL Glycated Hemoglobin (4.6-6.2) % Estim Average Glucose (70-100) Lactic Acid (0.5-2.2) mmol/L Calcium (8.5-10.3) mg/dL Total Bilirubin (0.2-1.0) mg/dL AST (10-42) IU/L ALT (10-60) IU/L Alkaline Phosphatase (42-121) IU/L Total Protein (6.7-8.2) g/dL Albumin (3.2-5.5) g/dL Globulin (2.1-4.2) g/dL Albumin/Globulin Ratio (1.0-2.2) Lipase (22-51) U/L Blood Type A POSITIVE Blood Type Recheck Antibody Screen NEGATIVE - Diagnostic Imaging Results Diagnostic Imaging Results: positive: Final report reviewed, Read independently Impression/Plan - Problem List Problem List: Gi bleed and fairly significant liver dysfunction and cirrhosis. Elevated INR Low albumin NGT was placed and was bloody. Plan EGD [place]. She is not well. She has liver dysfunction and anasarca, general illness for many months. I recommend blood products including FFP. If she continues to bleed after EGD, I recommend she be treated at a hospital which can offer a higher level of care
[2019-09-08] MEDS: INSULIN ASPART 300 UNIT/3 ML PEN SUBQ SCH (22:33)
--- NOTE | 2019-09-08 22:33 | ANESTHESIA ---
Pre-Anesthesia VS, & Labs - Diagnosis GI Bleed - Procedure EGD Vital Signs: Temp Pulse Resp BP Pulse Ox 36.5 C 75 20 125/44 L 99 09/08/19 21:08 09/08/19 21:08 09/08/19 21:08 09/08/19 21:08 09/08/19 21:08 Height 5 ft 2 in Weight (kg) 105.5 kg Body Mass Index 42.5 - NPO >8 hours - Is Patient ?: No - Lab Results Current Lab Results: Laboratory Tests 09/08/19 20:13: Lactic Acid 3.8 H* 09/08/19 19:41: Glycated Hemoglobin 7.8 H, Estim Average Glucose 177 H 09/08/19 19:41: WBC 11.9 H, RBC 2.80 L, Hgb 9.3 L, Hct 27.9 L, MCV 99.6 H, MCH 33.2 H, MCHC 33.3, RDW 14.4, Plt Count 169, MPV 11.0 H 09/08/19 18:17: Blood Type Recheck A POSITIVE 09/08/19 17:19: Sodium 138, Potassium 4.6, Chloride 98 L, Carbon Dioxide 29, Anion Gap 11.0, BUN 31 H, Creatinine 0.9, Estimated GFR (MDRD) 61 L, Glucose 144 H, Calcium 8.3 L, Total Bilirubin 1.4 H, AST 31, ALT 25, Alkaline Phosphatase 57, Total Protein 6.1 L, Albumin 3.0 L, Globulin 3.1, Albumin/Globulin Ratio 1.0, Lipase 21 L 09/08/19 17:19: PT 16.1 H, INR 1.4 H, APTT 27.5 09/08/19 17:19: WBC 10.3, RBC 3.00 L, Hgb 9.8 L, Hct 29.7 L, MCV 99.0, MCH 32.7 H, MCHC 33.0, RDW 14.4, Plt Count 165, MPV 10.6, Neut # (Auto) 7.6 H, Lymph # (Auto) 1.7, [place] # (Auto) 0.9, Eos # (Auto) 0.0, Baso # (Auto) 0.0, Absolute Nucleated RBC 0.00, Nucleated RBC % 0.0 07/07/20 17:19: Blood Type A POSITIVE, Antibody Screen NEGATIVE Fish Bones: 09/08/19 19:41 09/08/19 17:19 Home Medications and Allergies Home Medications: Ambulatory Orders Amlodipine Besylate 10 mg PO DAILY 09/08/19 Cholecalciferol (Vitamin D3) [Vitamin D3] 25 mcg PO DAILY 09/08/19 Insulin Glargine [Lantus Solostar] 90 unit SQ BID 09/08/19 Lisinopril [Zestril] 40 mg PO BID 09/08/19 Metformin HCl [Metformin HCl ER] 500 mg PO BID 09/08/19 Metoprolol Tartrate 25 mg PO BID 09/08/19 Active Medications Acetaminophen (Tylenol) 650 mg PO Q4HR PRN PRN Reason: Pain 1 to 4 Hydrocodone Bitart/Acetaminophen ([place] 5/325) 1 tab PO Q4HR PRN PRN Reason: Pain 5 to 7 Sodium Chloride (Normal Saline 0.9%) 1,000 mls @ 100 mls/hr IV .Q10H PAULO Insulin Aspart (Novolog) 1 - 5 unit SUBQ 0800,1200,1700,2100 PAULO; Protocol Insulin Glargine (Lantus Solostar) 10 unit SUBQ QPM PAULO Ondansetron HCl (Zofran Odt) 4 mg TL Q6HR PRN PRN Reason: Nausea / Vomiting Ondansetron HCl (Zofran Inj) 4 mg IVP Q6HR PRN PRN Reason: Nausea / Vomiting Pantoprazole Sodium (Protonix) 40 mg IVP QDAC PAULO Sodium Chloride (Normal Saline Flush 0.9%) 10 ml IVP PRN PRN PRN Reason: NEEDED PER PROVIDER ORDERS Sodium Chloride (Normal Saline Flush 0.9%) 10 ml IVP 0100,0900,1700 PAULO Amlodipine Besylate 10 mg PO DAILY 09/08/19 Cholecalciferol (Vitamin D3) [Vitamin D3] 25 mcg PO DAILY 09/08/19 Insulin Glargine [Lantus Solostar] 90 unit SQ BID 09/08/19 Lisinopril [Zestril] 40 mg PO BID 09/08/19 Metformin HCl [Metformin HCl ER] 500 mg PO BID 09/08/19 Metoprolol Tartrate 25 mg PO BID 09/08/19 Allergies/Adverse Reactions: Allergies Allergy/AdvReac Type Severity Reaction Status Date / Time No Known Drug Allergies Allergy Verified 09/08/19 16:56 Anes History & Medical History - Anesthetic History Anesthesia Complications: reports: No previous complications Family history of Anesthesia Complications: Denies Family history of Malignant Hyperthermia: Denies - Medical History Cardiovascular: reports: Hypertension, High cholesterol Pulmonary: reports: Shortness of breath, Sleep apnea (Mild and not needing CPAP), Other (Shortness of breath was evaluated with an echo April 15, 2019. Normal LV cavity size with mild concentric left ventricular hypertrophy and normal systolic function with LVEF 65 to 75%. No regional wall motion abnormalities. Normal right ventricle. Normal atria. Aortic sclerosis without steno) Gastrointestinal: reports: Chronic diarrhea (Up to 3 bowel movements a day of loose stool on a regular basis, possibly due to metformin), Other (Diverticulosis some liver dysfunction a well) Urinary: reports: Incontinence, Frequency Neuro: reports: None Musculoskeletal: reports: Osteoarthritis Endocrine/Autoimmune: reports: Type 2 diabetes Blood Disorders: reports: None Skin: reports: None Smoking Status: Never smoker Psychosocial: reports: No issues indicated - Surgical History General: Cholecystectomy Exam General: Alert, Oriented x3, Cooperative, No acute distress Dental: WNL Mouth Openin Fingerbreadth Neck Mobility: Normal Mallampati classification: III Thyromental Distance: less than 4 cm Respiratory: Decreased breath sounds, Crackles Cardiovascular: Regular rate, Normal S1, Normal S2, No murmurs Abdomen: Other Extremities: Other (some edema, very dry coarse rought skin to BLE) Neurological: Normal speech, Other (appears very weak and pale) Mental/Cognitive Status: Alert/Oriented X3, Normal for patient Plan Anesthesia Type: General (Patient appears pale and weak. Has an NG tube in place suctioning bood. I have spoken with her about general anesthesia and having a secure airway.) Consent for Procedure(s) Verified and Reviewed: Yes Code Status: Attempt Resuscitation ASA classification: 3-Severe systemic disease Is this case an emergency?: Yes
[2019-09-08] MEDS: SODIUM CHLORIDE 0.9% 1,000 ML IV SCH (22:34)
[2019-09-08] MEDS ORDERED: SODIUM CHLORIDE 0.9% 10 ML ONE (23:05)
[2019-09-08] MEDS ORDERED: EPINEPHrine 1 MG/ML AMP ONE (23:05)
[2019-09-08] MEDS ORDERED: LACTATED RINGERS 1,000 ML IV ONE (23:16)
[2019-09-09] MEDS: SODIUM CHLORIDE FLUSH 0.9% 10 ML SYRINGE IVP SCH ×3 (03:05→16:40)
[2019-09-09 06:16] LABS: BASOPHILS % (AUTO) 0.2 %; LYMPHOCYTES % (AUTO) 15.5 %; MEAN CORPUSCULAR HEMOGLOBIN 31.7 pg (27.0-31.0); MEAN CORPUSCULAR HGB CONC 30.1 g/dL (32.0-36.0); MEAN CORPUSCULAR VOLUME 105.5 fL (81.0-99.0); MEAN PLATELET VOLUME 11.3 fL (7.9-10.8); MONOCYTES % (AUTO) 7.6 %; NEUTROPHILS # (AUTO) 9.6 10^3/uL (1.5-6.6); NEUTROPHILS % (AUTO) 76.1 %; PLT - PLATELET COUNT 131 10^3/uL (130-450); RED BLOOD COUNT 1.83 10^6/uL (4.20-5.40); WHITE BLOOD COUNT 12.7 x10^3/uL (4.8-10.8)
[2019-09-09 06:21] LABS: HGB - HEMOGLOBIN 5.8 g/dL (12.0-16.0)
[2019-09-09 06:25] LABS: CALCIUM 7.9 mg/dL (8.5-10.3); CREATININE 1.1 mg/dL (0.4-1.0)
[2019-09-09] MEDS ORDERED: PANTOPRAZOLE 40 MG VIAL IVP SCH (07:00)
--- NOTE | 2019-09-09 07:04 | PHARMACY PROGRESS NOTE ---
- Best Possible Medication History Admit Date and Time: 09/08/192001 Processed by: Nursing Medication History completed: Yes As the person ultimately responsible for medication therapy, providers are able to order a medication from an existing home medication list in [facility] via the "Reconcile Routine" prior to Confirmation of that medication by it support technician. Such practice is discouraged except when the physician, in their clinical judgment, deems that a medical need exists for a medication without regard to previous use.
[2019-09-09] MEDS: SODIUM CHLORIDE 0.9% 1,000 ML IV SCH ×2 (08:02→21:04)
[2019-09-09] MEDS: INSULIN ASPART 300 UNIT/3 ML PEN SUBQ SCH ×4 (08:08→21:02)
[2019-09-09] MEDS: INSULIN GLARGINE 300 UNIT/3 ML PEN SUBQ SCH ×2 (08:09→21:02)
[2019-09-09] MEDS: PANTOPRAZOLE 40 MG VIAL IVP SCH ×2 (08:38→21:11)
[2019-09-09 08:54] LABS: GLUCOSE, URINE (UA) NEGATIVE (NEGATIVE); KETONES,URINE (UA) TRACE mg/dL (NEGATIVE); LEUKOCYTE ESTERASE, URINE TRACE (NEGATIVE); NITRITE,URINE POSITIVE (NEGATIVE); OCCULT BLOOD,URINE LARGE (NEGATIVE); PROTEIN,URINE >=300 mg/dL (NEGATIVE); UROBILINOGEN,URINE 0.2 (NORMAL) E.U./dL (NORMAL)
[2019-09-09 08:55] LABS: CLARITY,URINE CLOUDY (CLEAR)
--- NOTE | 2019-09-09 09:01 | PROVIDER PROGRESS NOTE ---
Subjective - Prog Note Date Prog Note Date: 09/09/19 - Subjective Subjective: Tenuous to have bloody bowel movements. Her hemoglobin this morning is less than 6. She is currently being transfused 3 units of packed red blood cells. She continues to report feeling fatigued and weak. Has some mild epigastric abdominal pain. Reports no dyspnea or chest pain. She does complain of a sore throat. She is wondering when she can get the NG tube out. Current Medications - Current Medications Current Medications: Active Medications Acetaminophen (Tylenol) 650 mg PO Q4HR PRN PRN Reason: Pain 1 to 4 Hydrocodone Bitart/Acetaminophen (Belva 5/325) 1 tab PO Q4HR PRN PRN Reason: Pain 5 to 7 Sodium Chloride (Normal Saline 0.9%) 1,000 mls @ 100 mls/hr IV .Q10H [facility] Last Admin: 09/09/19 08:02 Dose: 100 mls/hr Documented by: Insulin Aspart (Novolog) 1 - 5 unit SUBQ 0800,1200,1700,2100 [facility]; Protocol Last Admin: 09/09/19 08:08 Dose: 2 unit Documented by: Insulin Glargine (Lantus Solostar) 30 unit SUBQ BID [facility] Last Admin: 09/09/19 08:09 Dose: 30 unit Documented by: Ondansetron HCl (Zofran Odt) 4 mg TL Q6HR PRN PRN Reason: Nausea / Vomiting Ondansetron HCl (Zofran Inj) 4 mg IVP Q6HR PRN PRN Reason: Nausea / Vomiting Pantoprazole Sodium (Protonix) 40 mg IVP BID [facility] Last Admin: 09/09/19 08:38 Dose: 40 mg Documented by: Sodium Chloride (Normal Saline Flush 0.9%) 10 ml IVP PRN PRN PRN Reason: NEEDED PER PROVIDER ORDERS Sodium Chloride (Normal Saline Flush 0.9%) 10 ml IVP 0100,0900,1700 [facility] Last Admin: 09/09/19 05:57 Dose: 10 ml Documented by: Amlodipine Besylate 10 mg PO DAILY 09/08/19 Cholecalciferol (Vitamin D3) [Vitamin D3] 25 mcg PO DAILY 09/08/19 Insulin Glargine [Lantus Solostar] 90 unit SQ BID 09/08/19 Lisinopril [Zestril] 40 mg PO BID 09/08/19 Metformin HCl [Metformin HCl ER] 500 mg PO BID 09/08/19 Metoprolol Tartrate 25 mg PO BID 09/08/19 Objective - Vital Signs/Intake & Output Reviewed Vital Signs: Yes Vital Signs: Vital Signs x48h Temp Pulse Pulse Resp BP Pulse Ox 09/09/19 08:30 84 16 97 09/09/19 08:00 36.3 C L 86 16 122/38 L 100 09/09/19 06:03 85 109/41 L 09/09/19 05:45 85 124/69 09/09/19 05:28 84 16 107/38 L 98 09/09/19 04:50 84 112/47 L 100 09/09/19 04:05 36.3 C L 79 20 114/41 L 98 09/09/19 03:06 78 125/42 L 100 09/09/19 02:00 75 16 118/45 L 100 09/09/19 01:15 77 126/44 L Intake & Output: Intake & Output 09/06/19 09/07/19 09/08/19 09/09/19 23:59 23:59 23:59 23:59 Intake Total 110 1432.667 Output Total 250 281 Balance -140 1151.667 - Objective General Appearance: positive: Alert, Mild distress Eyes Bilateral: positive: Normal inspection, Other Eyes: OU Conjunctivae pale ENT: positive: ENT inspection nml, Other (NG tube in place.) Neck: positive: Nml inspection Respiratory: positive: No respiratory distress. negative: Wheezes, Rales, Rhonchi Cardiovascular: positive: No murmur, Tachycardia. negative: Irregularly irregular, Extrasystoles, Bradycardia, Systolic murmur Abdomen: positive: Nml bowel sounds, No distention, Tenderness (Mild tenderness in epigastric region.). negative: Guarding, Rebound Skin: positive: No rash, Dry, Pallor Extremities: positive: Full ROM, No pedal edema Neurologic/Psychiatric: positive: Oriented x3, Motor nml. negative: Disoriented to person, Disoriented to place, Disoriented to time - Lab Results Fish Bones: 09/09/19 17:43 09/09/19 12:00 Other Labs: Lab Results x24hrs 09/09/19 09/09/1909/08/20 Range/Units 08:20 07:30 07:25 WBC (4.8-10.8) x10^3/uL RBC (4.20-5.40) 10^6/uL Hgb (12.0-16.0) g/dL Hct (37.0-47.0) % MCV (81.0-99.0) fL MCH (27.0-31.0) pg MCHC (32.0-36.0) g/dL RDW (12.0-15.0) % Plt Count (130-450) 10^3/uL MPV (7.9-10.8) fL Neut # (Auto) (1.5-6.6) 10^3/uL Lymph # (Auto) (1.5-3.5) 10^3/uL [place] # (Auto) (0.0-1.0) 10^3/uL Eos # (Auto) (0.0-0.7) 10^3/uL Baso # (Auto) (0.0-0.1) 10^3/uL Absolute Nucleated RBC x10^3/uL Nucleated RBC % /100WBC PT (9.9-12.6) secs INR (0.8-1.2) APTT (24.9-33.3) secs Sodium (135-145) mmol/L Potassium (3.5-5.0) mmol/L Chloride (101-111) mmol/L Carbon Dioxide (21-32) mmol/L Anion Gap (6-13) BUN (6-20) mg/dL Creatinine (0.4-1.0) mg/dL Estimated GFR (MDRD) (>89) Glucose (70-100) mg/dL POC Whole Bld Glucose 205 H (70 - 100) mg/dL Glycated Hemoglobin (4.6-6.2) % Estim Average Glucose (70-100) Lactic Acid 5.2 H* (0.5-2.2) mmol/L Calcium (8.5-10.3) mg/dL Total Bilirubin (0.2-1.0) mg/dL AST (10-42) IU/L ALT (10-60) IU/L Alkaline Phosphatase (42-121) IU/L Total Protein (6.7-8.2) g/dL Albumin (3.2-5.5) g/dL Globulin (2.1-4.2) g/dL Albumin/Globulin Ratio (1.0-2.2) Lipase (22-51) U/L TSH (0.34-5.60) uIU/mL Urine Color RED/BLOODY Urine Clarity CLOUDY (CLEAR) Urine pH 5.0 (5.0-7.5) PH Ur Specific [place] 1.020 (1.002-1.030) Urine Protein >=300 H (NEGATIVE) mg/dL Urine Glucose (UA) NEGATIVE (NEGATIVE) mg/dL Urine Ketones TRACE (NEGATIVE) mg/dL Urine Occult Blood LARGE H (NEGATIVE) Urine Nitrite POSITIVE H (NEGATIVE) Urine Bilirubin SMALL H (NEGATIVE) Urine Urobilinogen 0.2 (NORMAL) (NORMAL) E.U./dL Ur Leukocyte Esterase TRACE H (NEGATIVE) Ur Microscopic Review INDICATED Urine Culture Comments Not Reportable Blood Type Blood Type Recheck Antibody Screen Crossmatch IS Only 09/09/19 09/09/19 09/09/19 Range/Units 06:00 06:00 06:00 WBC 12.7 H (4.8-10.8) x10^3/uL RBC 1.83 L (4.20-5.40) 10^6/uL Hgb 5.8 L* (12.0-16.0) g/dL Hct 19.3 L* (37.0-47.0) % MCV 105.5 H (81.0-99.0) fL MCH 31.7 H (27.0-31.0) pg MCHC 30.1 L (32.0-36.0) g/dL RDW 15.0 (12.0-15.0) % Plt Count 131 (130-450) 10^3/uL MPV 11.3 H (7.9-10.8) fL Neut # (Auto) 9.6 H (1.5-6.6) 10^3/uL Lymph # (Auto) 2.0 (1.5-3.5) 10^3/uL [place] # (Auto) 1.0 (0.0-1.0) 10^3/uL Eos # (Auto) 0.0 (0.0-0.7) 10^3/uL Baso # (Auto) 0.0 (0.0-0.1) 10^3/uL Absolute Nucleated RBC 0.00 x10^3/uL Nucleated RBC % 0.0 /100WBC PT (9.9-12.6) secs INR (0.8-1.2) APTT (24.9-33.3) secs Sodium 139 (135-145) mmol/L Potassium 5.4 H (3.5-5.0) mmol/L Chloride 100 L (101-111) mmol/L Carbon Dioxide 23 (21-32) mmol/L Anion Gap 16.0 H (6-13) BUN 38 H (6-20) mg/dL Creatinine 1.1 H (0.4-1.0) mg/dL Estimated GFR (MDRD) 49 L (>89) Glucose 218 H (70-100) mg/dL POC Whole Bld Glucose (70 - 100) mg/dL Glycated Hemoglobin (4.6-6.2) % Estim Average Glucose (70-100) Lactic Acid (0.5-2.2) mmol/L Calcium 7.9 L (8.5-10.3) mg/dL Total Bilirubin (0.2-1.0) mg/dL AST (10-42) IU/L ALT (10-60) IU/L Alkaline Phosphatase (42-121) IU/L Total Protein (6.7-8.2) g/dL Albumin (3.2-5.5) g/dL Globulin (2.1-4.2) g/dL Albumin/Globulin Ratio (1.0-2.2) Lipase (22-51) U/L TSH 3.14 (0.34-5.60) uIU/mL Urine Color Urine Clarity (CLEAR) Urine pH (5.0-7.5) PH Ur Specific [place] (1.002-1.030) Urine Protein (NEGATIVE) mg/dL Urine Glucose (UA) (NEGATIVE) mg/dL Urine Ketones (NEGATIVE) mg/dL Urine Occult Blood (NEGATIVE) Urine Nitrite (NEGATIVE) Urine Bilirubin (NEGATIVE) Urine Urobilinogen (NORMAL) E.U./dL Ur Leukocyte Esterase (NEGATIVE) Ur Microscopic Review Urine Culture Comments Blood Type Blood Type Recheck Antibody Screen Crossmatch IS Only 09/08/19 09/08/19 09/08/19 Range/Units 22:29 20:13 19:41 WBC (4.8-10.8) x10^3/uL RBC (4.20-5.40) 10^6/uL Hgb (12.0-16.0) g/dL Hct (37.0-47.0) % MCV (81.0-99.0) fL MCH (27.0-31.0) pg MCHC (32.0-36.0) g/dL RDW (12.0-15.0) % Plt Count (130-450) 10^3/uL MPV (7.9-10.8) fL Neut # (Auto) (1.5-6.6) 10^3/uL Lymph # (Auto) (1.5-3.5) 10^3/uL [place] # (Auto) (0.0-1.0) 10^3/uL Eos # (Auto) (0.0-0.7) 10^3/uL Baso # (Auto) (0.0-0.1) 10^3/uL Absolute Nucleated RBC x10^3/uL Nucleated RBC % /100WBC PT (9.9-12.6) secs INR (0.8-1.2) APTT (24.9-33.3) secs Sodium (135-145) mmol/L Potassium (3.5-5.0) mmol/L Chloride (101-111) mmol/L Carbon Dioxide (21-32) mmol/L Anion Gap (6-13) BUN (6-20) mg/dL Creatinine (0.4-1.0) mg/dL Estimated GFR (MDRD) (>89) Glucose (70-100) mg/dL POC Whole Bld Glucose 187 H (70 - 100) mg/dL Glycated Hemoglobin 7.8 H (4.6-6.2) % Estim Average Glucose 177 H (70-100) Lactic Acid 3.8 H* (0.5-2.2) mmol/L Calcium (8.5-10.3) mg/dL Total Bilirubin (0.2-1.0) mg/dL AST (10-42) IU/L ALT (10-60) IU/L Alkaline Phosphatase (42-121) IU/L Total Protein (6.7-8.2) g/dL Albumin (3.2-5.5) g/dL Globulin (2.1-4.2) g/dL Albumin/Globulin Ratio (1.0-2.2) Lipase (22-51) U/L TSH (0.34-5.60) uIU/mL Urine Color Urine Clarity (CLEAR) Urine pH (5.0-7.5) PH Ur Specific [place] (1.002-1.030) Urine Protein (NEGATIVE) mg/dL Urine Glucose (UA) (NEGATIVE) mg/dL Urine Ketones (NEGATIVE) mg/dL Urine Occult Blood (NEGATIVE) Urine Nitrite (NEGATIVE) Urine Bilirubin (NEGATIVE) Urine Urobilinogen (NORMAL) E.U./dL Ur Leukocyte Esterase (NEGATIVE) Ur Microscopic Review Urine Culture Comments Blood Type Blood Type Recheck Antibody Screen Crossmatch IS Only 09/08/19 09/08/19 09/08/19 Range/Units 19:41 18:17 17:19 WBC 11.9 H (4.8-10.8) x10^3/uL RBC 2.80 L (4.20-5.40) 10^6/uL Hgb 9.3 L (12.0-16.0) g/dL Hct 27.9 L (37.0-47.0) % MCV 99.6 H (81.0-99.0) fL MCH 33.2 H (27.0-31.0) pg MCHC 33.3 (32.0-36.0) g/dL RDW 14.4 (12.0-15.0) % Plt Count 169 (130-450) 10^3/uL MPV 11.0 H (7.9-10.8) fL Neut # (Auto) (1.5-6.6) 10^3/uL Lymph # (Auto) (1.5-3.5) 10^3/uL [place] # (Auto) (0.0-1.0) 10^3/uL Eos # (Auto) (0.0-0.7) 10^3/uL Baso # (Auto) (0.0-0.1) 10^3/uL Absolute Nucleated RBC x10^3/uL Nucleated RBC % /100WBC PT (9.9-12.6) secs INR (0.8-1.2) APTT (24.9-33.3) secs Sodium 138 (135-145) mmol/L Potassium 4.6 (3.5-5.0) mmol/L Chloride 98 L (101-111) mmol/L Carbon Dioxide 29 (21-32) mmol/L Anion Gap 11.0 (6-13) BUN 31 H (6-20) mg/dL Creatinine 0.9 (0.4-1.0) mg/dL Estimated GFR (MDRD) 61 L (>89) Glucose 144 H (70-100) mg/dL POC Whole Bld Glucose (70 - 100) mg/dL Glycated Hemoglobin (4.6-6.2) % Estim Average Glucose (70-100) Lactic Acid (0.5-2.2) mmol/L Calcium 8.3 L (8.5-10.3) mg/dL Total Bilirubin 1.4 H (0.2-1.0) mg/dL AST 31 (10-42) IU/L ALT 25 (10-60) IU/L Alkaline Phosphatase 57 (42-121) IU/L Total Protein 6.1 L (6.7-8.2) g/dL Albumin 3.0 L (3.2-5.5) g/dL Globulin 3.1 (2.1-4.2) g/dL Albumin/Globulin Ratio 1.0 (1.0-2.2) Lipase 21 L (22-51) U/L TSH (0.34-5.60) uIU/mL Urine Color Urine Clarity (CLEAR) Urine pH (5.0-7.5) PH Ur Specific [place] (1.002-1.030) Urine Protein (NEGATIVE) mg/dL Urine Glucose (UA) (NEGATIVE) mg/dL Urine Ketones (NEGATIVE) mg/dL Urine Occult Blood (NEGATIVE) Urine Nitrite (NEGATIVE) Urine Bilirubin (NEGATIVE) Urine Urobilinogen (NORMAL) E.U./dL Ur Leukocyte Esterase (NEGATIVE) Ur Microscopic Review Urine Culture Comments Blood Type Blood Type Recheck A POSITIVE Antibody Screen Crossmatch IS Only 09/08/19 09/08/19 09/08/19 Range/Units 17:19 17:19 17:19 WBC 10.3 (4.8-10.8) x10^3/uL RBC 3.00 L (4.20-5.40) 10^6/uL Hgb 9.8 L (12.0-16.0) g/dL Hct 29.7 L (37.0-47.0) % MCV 99.0 (81.0-99.0) fL MCH 32.7 H (27.0-31.0) pg MCHC 33.0 (32.0-36.0) g/dL RDW 14.4 (12.0-15.0) % Plt Count 165 (130-450) 10^3/uL MPV 10.6 (7.9-10.8) fL Neut # (Auto) 7.6 H (1.5-6.6) 10^3/uL Lymph # (Auto) 1.7 (1.5-3.5) 10^3/uL [place] # (Auto) 0.9 (0.0-1.0) 10^3/uL Eos # (Auto) 0.0 (0.0-0.7) 10^3/uL Baso # (Auto) 0.0 (0.0-0.1) 10^3/uL Absolute Nucleated RBC 0.00 x10^3/uL Nucleated RBC % 0.0 /100WBC PT 16.1 H (9.9-12.6) secs INR 1.4 H (0.8-1.2) APTT 27.5 (24.9-33.3) secs Sodium (135-145) mmol/L Potassium (3.5-5.0) mmol/L Chloride (101-111) mmol/L Carbon Dioxide (21-32) mmol/L Anion Gap (6-13) BUN (6-20) mg/dL Creatinine (0.4-1.0) mg/dL Estimated GFR (MDRD) (>89) Glucose (70-100) mg/dL POC Whole Bld Glucose (70 - 100) mg/dL Glycated Hemoglobin (4.6-6.2) % Estim Average Glucose (70-100) Lactic Acid (0.5-2.2) mmol/L Calcium (8.5-10.3) mg/dL Total Bilirubin (0.2-1.0) mg/dL AST (10-42) IU/L ALT (10-60) IU/L Alkaline Phosphatase (42-121) IU/L Total Protein (6.7-8.2) g/dL Albumin (3.2-5.5) g/dL Globulin (2.1-4.2) g/dL Albumin/Globulin Ratio (1.0-2.2) Lipase (22-51) U/L TSH (0.34-5.60) uIU/mL Urine Color Urine Clarity (CLEAR) Urine pH (5.0-7.5) PH Ur Specific [place] (1.002-1.030) Urine Protein (NEGATIVE) mg/dL Urine Glucose (UA) (NEGATIVE) mg/dL Urine Ketones (NEGATIVE) mg/dL Urine Occult Blood (NEGATIVE) Urine Nitrite (NEGATIVE) Urine Bilirubin (NEGATIVE) Urine Urobilinogen (NORMAL) E.U./dL Ur Leukocyte Esterase (NEGATIVE) Ur Microscopic Review Urine Culture Comments Blood Type A POSITIVE Blood Type Recheck Antibody Screen NEGATIVE Crossmatch IS Only See Detail Assessment/Plan - Problem List (1) GI bleed Impression: 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 She continues to have some bleeding but this has decreased. We will keep her on Protonix 40 mg IV twice daily for the time being. We will continue to monitor for further bleeding. If this persists, will need to consider possible colonoscopy especially if it is bright red blood per rectum. General surgery also feels that if she continues to bleed then she might need to be transferred to higher level of care for gastroenterology evaluation otherwise he will need a repeat endoscopy at this hospitalization for biopsy of this mass. Qualifiers: GI bleed type/associated pathology: unspecified gastrointestinal hemorrhage type Qualified Code(s): K92.2 - Gastrointestinal hemorrhage, unspecified (2) Anemia due to acute blood loss Impression: This is secondary to the GI bleed. Her hemoglobin has decreased to 5.8 this m orning. She is currently being transfused 3 units of packed red blood cells. There continues to be evidence of bleeding. Will monitor hemoglobin every 8 hours and transfuse as needed for goal hemoglobin greater than 7. She is fortunately hemodynamically stable. Continue with SCDs for DVT prophylaxis. No chemical DVT prophylaxis given the ongoing bleeding. (3) Acidosis, lactic Impression: Lactic acid is elevated this morning at greater than 5. Her blood pressure has been stable with systolics in the 120s although her diastolic has been low in the 30s. Her renal function is stable and she does not show evidence of hypoperfusion. Suspect this may be secondary to decreased liver clearance as her liver does appear cirrhotic on imaging and she was on metformin at home. We will continue with IV hydration and transfusion with packed red blood cells given the anemia. We will hold off on further boluses given she receiving a large amount of blood products. Recheck lactic acid in 3 hours. We will check blood cultures and urinalysis to rule out possible infection as a cause of her lactic acidosis. 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 This was not biopsied due to ongoing bleeding and concern that biopsy can cause further bleeding. She will need another EGD during this hospitalization once her bleeding slows down or showing to be transferred to higher level of care. (5) Liver cirrhosis Impression: Her liver appeared cirrhotic on imaging. Her INR slightly elevated at 1.4 but she does not have thrombocytopenia. Her abdomen is also slightly decreased at 3.0. She has no history of alcohol use but given her obesity, suspect this may be related to BERNARD. We will recheck her LFTs and INR in the morning. (6) Controlled type 2 diabetes mellitus without complication, with long-term current use of insulin Impression: Her blood glucose has been elevated at greater than 200. We will increase her Lantus to 30 units twice daily. Continue with sliding scale. Clear liquid diet as tolerated. (7) Hypertension Impression: She has a history of hypertension but she is currently normotensive/borderline hypotensive given her diastolic is as low as the 30s but her systolic is in the 120s. We will continue to hold her home antihypertensives given the ongoing bleeding. We will resume when clinically appropriate. Qualifiers: Hypertension type: essential hypertension Qualified Code(s): I10 - Essential (primary) hypertension
[2019-09-09 09:06] LABS: ICTOTEST,URINE NEGATIVE
[2019-09-09 09:07] LABS: BILIRUBIN,URINE NEGATIVE (NEGATIVE)
[2019-09-09 09:14] LABS: BACTERIA,URINE Moderate /HPF (None Seen); RBC,URINE TNTC /HPF (0-5); SQUAMOUS EPITHELIAL CELL,UR FEW Squamous (<= Few)
[2019-09-09] MEDS: HYDROcod/ACETAM 5/325 MG TABLET PO PRN (09:56)
[2019-09-09 12:14] LABS: CALCIUM 7.8 mg/dL (8.5-10.3); CREATININE 1.3 mg/dL (0.4-1.0)
[2019-09-09] MEDS: cefTRIAXone 1 GM in SODIUM CHLORIDE 0.9% MINIBAG 100 ML IV SCH (12:24)
--- NOTE | 2019-09-09 12:56 | PROVIDER PROGRESS NOTE ---
Subjective - Prog Note Date Prog Note Date: 09/09/19 - Subjective Pt reports feeling: No change (she continues to have occaisional bloody bm) Objective - Vital Signs/Intake & Output Vital Signs: Vital Signs x48h Temp Pulse Pulse Resp BP BP Pulse Ox 09/09/19 12:33 36.4 C L 92 18 121/39 L 99 09/09/19 11:55 36.3 C L 91 18 131/45 H 09/09/19 11:41 36.4 C L 89 18 121/39 L 09/09/19 11:40 36.5 C 91 18 121/45 L 09/09/19 11:25 36.4 C L 92 18 129/31 L 09/09/19 09:35 36.5 C 89 18 114/41 L 09/09/19 09:20 36.6 C 90 16 113/39 L 09/09/19 09:15 36.6 C 91 16 116/43 L 09/09/19 08:30 84 16 97 09/09/19 08:00 36.3 C L 86 16 122/38 L 100 09/09/19 06:03 85 109/41 L 09/09/19 05:45 85 124/69 09/09/19 05:28 84 16 107/38 L 98 Intake & Output: Intake & Output 09/06/19 09/07/19 09/08/19 09/09/19 23:59 23:59 23:59 23:59 Intake Total 110 1802.667 Output Total 250 281 Balance -140 1521.667 - Objective General Appearance: positive: No acute distress, Alert Eyes Bilateral: positive: Normal inspection Respiratory: positive: No respiratory distress Abdomen: positive: Non-tender, No distention - Lab Results Fish Bones: 09/09/19 06:00 09/09/19 12:00 Other Labs: Lab Results x24hrs 09/09/19 09/09/19 09/09/19 Range/Units 12:00 12:00 11:36 WBC (4.8-10.8) x10^3/uL RBC (4.20-5.40) 10^6/uL Hgb (12.0-16.0) g/dL Hct (37.0-47.0) % MCV (81.0-99.0) fL MCH (27.0-31.0) pg MCHC (32.0-36.0) g/dL RDW (12.0-15.0) % Plt Count (130-450) 10^3/uL MPV (7.9-10.8) fL Neut # (Auto) (1.5-6.6) 10^3/uL Lymph # (Auto) (1.5-3.5) 10^3/uL Falls # (Auto) (0.0-1.0) 10^3/uL Eos # (Auto) (0.0-0.7) 10^3/uL Baso # (Auto) (0.0-0.1) 10^3/uL Absolute Nucleated RBC x10^3/uL Nucleated RBC % /100WBC PT (9.9-12.6) secs INR (0.8-1.2) APTT (24.9-33.3) secs Sodium 138 (135-145) mmol/L Potassium 4.8 (3.5-5.0) mmol/L Chloride 99 L (101-111) mmol/L Carbon Dioxide 27 (21-32) mmol/L Anion Gap 12.0 (6-13) BUN 47 H (6-20) mg/dL Creatinine 1.3 H (0.4-1.0) mg/dL Estimated GFR (MDRD) 40 L (>89) Glucose 202 H (70-100) mg/dL POC Whole Bld Glucose 194 H (70 - 100) mg/dL Glycated Hemoglobin (4.6-6.2) % Estim Average Glucose (70-100) Lactic Acid 3.6 H* (0.5-2.2) mmol/L Calcium 7.8 L (8.5-10.3) mg/dL Total Bilirubin (0.2-1.0) mg/dL AST (10-42) IU/L ALT (10-60) IU/L Alkaline Phosphatase (42-121) IU/L Total Protein (6.7-8.2) g/dL Albumin (3.2-5.5) g/dL Globulin (2.1-4.2) g/dL Albumin/Globulin Ratio (1.0-2.2) Lipase (22-51) U/L TSH (0.34-5.60) uIU/mL Urine Color Urine Clarity (CLEAR) Urine pH (5.0-7.5) PH Ur Specific [place] (1.002-1.030) Urine Protein (NEGATIVE) mg/dL Urine Glucose (UA) (NEGATIVE) mg/dL Urine Ketones (NEGATIVE) mg/dL Urine Occult Blood (NEGATIVE) Urine Nitrite (NEGATIVE) Urine Bilirubin (NEGATIVE) Urine Urobilinogen (NORMAL) E.U./dL Ur Leukocyte Esterase (NEGATIVE) Urine RBC (0-5) /HPF Urine WBC (0-5) /HPF Ur Squamous Epith Cells (<= Few) Urine Bacteria (None Seen) /HPF Ur Microscopic Review Urine Culture Comments Blood Type Blood Type Recheck Antibody Screen Crossmatch IS Only 09/09/19 09/09/19 09/09/19 Range/Units 08:20 07:30 07:25 WBC (4.8-10.8) x10^3/uL RBC (4.20-5.40) 10^6/uL Hgb (12.0-16.0) g/dL Hct (37.0-47.0) % MCV (81.0-99.0) fL MCH (27.0-31.0) pg MCHC (32.0-36.0) g/dL RDW (12.0-15.0) % Plt Count (130-450) 10^3/uL MPV (7.9-10.8) fL Neut # (Auto) (1.5-6.6) 10^3/uL Lymph # (Auto) (1.5-3.5) 10^3/uL Falls # (Auto) (0.0-1.0) 10^3/uL Eos # (Auto) (0.0-0.7) 10^3/uL Baso # (Auto) (0.0-0.1) 10^3/uL Absolute Nucleated RBC x10^3/uL Nucleated RBC % /100WBC PT (9.9-12.6) secs INR (0.8-1.2) APTT (24.9-33.3) secs Sodium (135-145) mmol/L Potassium (3.5-5.0) mmol/L Chloride (101-111) mmol/L Carbon Dioxide (21-32) mmol/L Anion Gap (6-13) BUN (6-20) mg/dL Creatinine (0.4-1.0) mg/dL Estimated GFR (MDRD) (>89) Glucose (70-100) mg/dL POC Whole Bld Glucose 205 H (70 - 100) mg/dL Glycated Hemoglobin (4.6-6.2) % Estim Average Glucose (70-100) Lactic Acid 5.2 H* (0.5-2.2) mmol/L Calcium (8.5-10.3) mg/dL Total Bilirubin (0.2-1.0) mg/dL AST (10-42) IU/L ALT (10-60) IU/L Alkaline Phosphatase (42-121) IU/L Total Protein (6.7-8.2) g/dL Albumin (3.2-5.5) g/dL Globulin (2.1-4.2) g/dL Albumin/Globulin Ratio (1.0-2.2) Lipase (22-51) U/L TSH (0.34-5.60) uIU/mL Urine Color RED/BLOODY Urine Clarity CLOUDY (CLEAR) Urine pH 5.0 (5.0-7.5) PH Ur Specific [place] 1.020 (1.002-1.030) Urine Protein >=300 H (NEGATIVE) mg/dL Urine Glucose (UA) NEGATIVE (NEGATIVE) mg/dL Urine Ketones TRACE (NEGATIVE) mg/dL Urine Occult Blood LARGE H (NEGATIVE) Urine Nitrite POSITIVE H (NEGATIVE) Urine Bilirubin NEGATIVE (NEGATIVE) Urine Urobilinogen 0.2 (NORMAL) (NORMAL) E.U./dL Ur Leukocyte Esterase TRACE H (NEGATIVE) Urine RBC TNTC H (0-5) /HPF Urine WBC 6-10 H (0-5) /HPF Ur Squamous Epith Cells FEW Squamous (<= Few) Urine Bacteria Moderate H (None Seen) /HPF Ur Microscopic Review INDICATED Urine Culture Comments INDICATED Blood Type Blood Type Recheck Antibody Screen Crossmatch IS Only 09/09/19 09/09/19 09/09/19 Range/Units 06:00 06:00 06:00 WBC 12.7 H (4.8-10.8) x10^3/uL RBC 1.83 L (4.20-5.40) 10^6/uL Hgb 5.8 L* (12.0-16.0) g/dL Hct 19.3 L* (37.0-47.0) % MCV 105.5 H (81.0-99.0) fL MCH 31.7 H (27.0-31.0) pg MCHC 30.1 L (32.0-36.0) g/dL RDW 15.0 (12.0-15.0) % Plt Count 131 (130-450) 10^3/uL MPV 11.3 H (7.9-10.8) fL Neut # (Auto) 9.6 H (1.5-6.6) 10^3/uL Lymph # (Auto) 2.0 (1.5-3.5) 10^3/uL Falls # (Auto) 1.0 (0.0-1.0) 10^3/uL Eos # (Auto) 0.0 (0.0-0.7) 10^3/uL Baso # (Auto) 0.0 (0.0-0.1) 10^3/uL Absolute Nucleated RBC 0.00 x10^3/uL Nucleated RBC % 0.0 /100WBC PT (9.9-12.6) secs INR (0.8-1.2) APTT (24.9-33.3) secs Sodium 139 (135-145) mmol/L Potassium 5.4 H (3.5-5.0) mmol/L Chloride 100 L (101-111) mmol/L Carbon Dioxide 23 (21-32) mmol/L Anion Gap 16.0 H (6-13) BUN 38 H (6-20) mg/dL Creatinine 1.1 H (0.4-1.0) mg/dL Estimated GFR (MDRD) 49 L (>89) Glucose 218 H (70-100) mg/dL POC Whole Bld Glucose (70 - 100) mg/dL Glycated Hemoglobin (4.6-6.2) % Estim Average Glucose (70-100) Lactic Acid (0.5-2.2) mmol/L Calcium 7.9 L (8.5-10.3) mg/dL Total Bilirubin (0.2-1.0) mg/dL AST (10-42) IU/L ALT (10-60) IU/L Alkaline Phosphatase (42-121) IU/L Total Protein (6.7-8.2) g/dL Albumin (3.2-5.5) g/dL Globulin (2.1-4.2) g/dL Albumin/Globulin Ratio (1.0-2.2) Lipase (22-51) U/L TSH 3.14 (0.34-5.60) uIU/mL Urine Color Urine Clarity (CLEAR) Urine pH (5.0-7.5) PH Ur Specific [place] (1.002-1.030) Urine Protein (NEGATIVE) mg/dL Urine Glucose (UA) (NEGATIVE) mg/dL Urine Ketones (NEGATIVE) mg/dL Urine Occult Blood (NEGATIVE) Urine Nitrite (NEGATIVE) Urine Bilirubin (NEGATIVE) Urine Urobilinogen (NORMAL) E.U./dL Ur Leukocyte Esterase (NEGATIVE) Urine RBC (0-5) /HPF Urine WBC (0-5) /HPF Ur Squamous Epith Cells (<= Few) Urine Bacteria (None Seen) /HPF Ur Microscopic Review Urine Culture Comments Blood Type Blood Type Recheck Antibody Screen Crossmatch IS Only 09/08/19 09/08/19 09/08/19 Range/Units 22:29 20:13 19:41 WBC (4.8-10.8) x10^3/uL RBC (4.20-5.40) 10^6/uL Hgb (12.0-16.0) g/dL Hct (37.0-47.0) % MCV (81.0-99.0) fL MCH (27.0-31.0) pg MCHC (32.0-36.0) g/dL RDW (12.0-15.0) % Plt Count (130-450) 10^3/uL MPV (7.9-10.8) fL Neut # (Auto) (1.5-6.6) 10^3/uL Lymph # (Auto) (1.5-3.5) 10^3/uL Falls # (Auto) (0.0-1.0) 10^3/uL Eos # (Auto) (0.0-0.7) 10^3/uL Baso # (Auto) (0.0-0.1) 10^3/uL Absolute Nucleated RBC x10^3/uL Nucleated RBC % /100WBC PT (9.9-12.6) secs INR (0.8-1.2) APTT (24.9-33.3) secs Sodium (135-145) mmol/L Potassium (3.5-5.0) mmol/L Chloride (101-111) mmol/L Carbon Dioxide (21-32) mmol/L Anion Gap (6-13) BUN (6-20) mg/dL Creatinine (0.4-1.0) mg/dL Estimated GFR (MDRD) (>89) Glucose (70-100) mg/dL POC Whole Bld Glucose 187 H (70 - 100) mg/dL Glycated Hemoglobin 7.8 H (4.6-6.2) % Estim Average Glucose 177 H (70-100) Lactic Acid 3.8 H* (0.5-2.2) mmol/L Calcium (8.5-10.3) mg/dL Total Bilirubin (0.2-1.0) mg/dL AST (10-42) IU/L ALT (10-60) IU/L Alkaline Phosphatase (42-121) IU/L Total Protein (6.7-8.2) g/dL Albumin (3.2-5.5) g/dL Globulin (2.1-4.2) g/dL Albumin/Globulin Ratio (1.0-2.2) Lipase (22-51) U/L TSH (0.34-5.60) uIU/mL Urine Color Urine Clarity (CLEAR) Urine pH (5.0-7.5) PH Ur Specific [place] (1.002-1.030) Urine Protein (NEGATIVE) mg/dL Urine Glucose (UA) (NEGATIVE) mg/dL Urine Ketones (NEGATIVE) mg/dL Urine Occult Blood (NEGATIVE) Urine Nitrite (NEGATIVE) Urine Bilirubin (NEGATIVE) Urine Urobilinogen (NORMAL) E.U./dL Ur Leukocyte Esterase (NEGATIVE) Urine RBC (0-5) /HPF Urine WBC (0-5) /HPF Ur Squamous Epith Cells (<= Few) Urine Bacteria (None Seen) /HPF Ur Microscopic Review Urine Culture Comments Blood Type Blood Type Recheck Antibody Screen Crossmatch IS Only 09/08/19 09/08/19 09/08/19 Range/Units 19:41 18:17 17:19 WBC 11.9 H (4.8-10.8) x10^3/uL RBC 2.80 L (4.20-5.40) 10^6/uL Hgb 9.3 L (12.0-16.0) g/dL Hct 27.9 L (37.0-47.0) % MCV 99.6 H (81.0-99.0) fL MCH 33.2 H (27.0-31.0) pg MCHC 33.3 (32.0-36.0) g/dL RDW 14.4 (12.0-15.0) % Plt Count 169 (130-450) 10^3/uL MPV 11.0 H (7.9-10.8) fL Neut # (Auto) (1.5-6.6) 10^3/uL Lymph # (Auto) (1.5-3.5) 10^3/uL Falls # (Auto) (0.0-1.0) 10^3/uL Eos # (Auto) (0.0-0.7) 10^3/uL Baso # (Auto) (0.0-0.1) 10^3/uL Absolute Nucleated RBC x10^3/uL Nucleated RBC % /100WBC PT (9.9-12.6) secs INR (0.8-1.2) APTT (24.9-33.3) secs Sodium 138 (135-145) mmol/L Potassium 4.6 (3.5-5.0) mmol/L Chloride 98 L (101-111) mmol/L Carbon Dioxide 29 (21-32) mmol/L Anion Gap 11.0 (6-13) BUN 31 H (6-20) mg/dL Creatinine 0.9 (0.4-1.0) mg/dL Estimated GFR (MDRD) 61 L (>89) Glucose 144 H (70-100) mg/dL POC Whole Bld Glucose (70 - 100) mg/dL Glycated Hemoglobin (4.6-6.2) % Estim Average Glucose (70-100) Lactic Acid (0.5-2.2) mmol/L Calcium 8.3 L (8.5-10.3) mg/dL Total Bilirubin 1.4 H (0.2-1.0) mg/dL AST 31 (10-42) IU/L ALT 25 (10-60) IU/L Alkaline Phosphatase 57 (42-121) IU/L Total Protein 6.1 L (6.7-8.2) g/dL Albumin 3.0 L (3.2-5.5) g/dL Globulin 3.1 (2.1-4.2) g/dL Albumin/Globulin Ratio 1.0 (1.0-2.2) Lipase 21 L (22-51) U/L TSH (0.34-5.60) uIU/mL Urine Color Urine Clarity (CLEAR) Urine pH (5.0-7.5) PH Ur Specific [place] (1.002-1.030) Urine Protein (NEGATIVE) mg/dL Urine Glucose (UA) (NEGATIVE) mg/dL Urine Ketones (NEGATIVE) mg/dL Urine Occult Blood (NEGATIVE) Urine Nitrite (NEGATIVE) Urine Bilirubin (NEGATIVE) Urine Urobilinogen (NORMAL) E.U./dL Ur Leukocyte Esterase (NEGATIVE) Urine RBC (0-5) /HPF Urine WBC (0-5) /HPF Ur Squamous Epith Cells (<= Few) Urine Bacteria (None Seen) /HPF Ur Microscopic Review Urine Culture Comments Blood Type Blood Type Recheck A POSITIVE Antibody Screen Crossmatch IS Only 09/08/19 09/08/19 09/08/19 Range/Units 17:19 17:19 17:19 WBC 10.3 (4.8-10.8) x10^3/uL RBC 3.00 L (4.20-5.40) 10^6/uL Hgb 9.8 L (12.0-16.0) g/dL Hct 29.7 L (37.0-47.0) % MCV 99.0 (81.0-99.0) fL MCH 32.7 H (27.0-31.0) pg MCHC 33.0 (32.0-36.0) g/dL RDW 14.4 (12.0-15.0) % Plt Count 165 (130-450) 10^3/uL MPV 10.6 (7.9-10.8) fL Neut # (Auto) 7.6 H (1.5-6.6) 10^3/uL Lymph # (Auto) 1.7 (1.5-3.5) 10^3/uL Falls # (Auto) 0.9 (0.0-1.0) 10^3/uL Eos # (Auto) 0.0 (0.0-0.7) 10^3/uL Baso # (Auto) 0.0 (0.0-0.1) 10^3/uL Absolute Nucleated RBC 0.00 x10^3/uL Nucleated RBC % 0.0 /100WBC PT 16.1 H (9.9-12.6) secs INR 1.4 H (0.8-1.2) APTT 27.5 (24.9-33.3) secs Sodium (135-145) mmol/L Potassium (3.5-5.0) mmol/L Chloride (101-111) mmol/L Carbon Dioxide (21-32) mmol/L Anion Gap (6-13) BUN (6-20) mg/dL Creatinine (0.4-1.0) mg/dL Estimated GFR (MDRD) (>89) Glucose (70-100) mg/dL POC Whole Bld Glucose (70 - 100) mg/dL Glycated Hemoglobin (4.6-6.2) % Estim Average Glucose (70-100) Lactic Acid (0.5-2.2) mmol/L Calcium (8.5-10.3) mg/dL Total Bilirubin (0.2-1.0) mg/dL AST (10-42) IU/L ALT (10-60) IU/L Alkaline Phosphatase (42-121) IU/L Total Protein (6.7-8.2) g/dL Albumin (3.2-5.5) g/dL Globulin (2.1-4.2) g/dL Albumin/Globulin Ratio (1.0-2.2) Lipase (22-51) U/L TSH (0.34-5.60) uIU/mL Urine Color Urine Clarity (CLEAR) Urine pH (5.0-7.5) PH Ur Specific [place] (1.002-1.030) Urine Protein (NEGATIVE) mg/dL Urine Glucose (UA) (NEGATIVE) mg/dL Urine Ketones (NEGATIVE) mg/dL Urine Occult Blood (NEGATIVE) Urine Nitrite (NEGATIVE) Urine Bilirubin (NEGATIVE) Urine Urobilinogen (NORMAL) E.U./dL Ur Leukocyte Esterase (NEGATIVE) Urine RBC (0-5) /HPF Urine WBC (0-5) /HPF Ur Squamous Epith Cells (<= Few) Urine Bacteria (None Seen) /HPF Ur Microscopic Review Urine Culture Comments Blood Type A POSITIVE Blood Type Recheck Antibody Screen NEGATIVE Crossmatch IS Only See Detail - Diagnostic Imaging Diagnostic Imaging Results: positive: Read independently (she appears to have a mass which was seen on egd distal esophagus/ ge jxn) Assessment/Plan - Problem List (1) Anemia due to acute blood loss Impression: She had a diffusely oozing mass at the GE JXN. I believe the mass is evident on the ct scan as well as adenopathy. I recommend having the ct scan reviewed. If she continues to have bleeding I recommend she be transferred to a hospital that offers a higher level of care and has a dedicated gastroenterology service to biopsy the area and possibly treat the bleeding.
[2019-09-09] MEDS ORDERED: PHENOL THROAT SPRAY 177 ML MM PRN (13:17)
[2019-09-09 17:51] LABS: HGB - HEMOGLOBIN 9.7 g/dL (12.0-16.0)
[2019-09-09] MEDS: SODIUM CHLORIDE FLUSH 0.9% 10 ML SYRINGE IVP PRN (21:11)
[2019-09-10] MEDS: SODIUM CHLORIDE FLUSH 0.9% 10 ML SYRINGE IVP SCH ×3 (02:28→16:39)
[2019-09-10 06:22] LABS: BASOPHILS % (AUTO) 0.5 %; EOSINOPHILS % (AUTO) 0.2 %; LYMPHOCYTES % (AUTO) 10.2 %; MEAN CORPUSCULAR HEMOGLOBIN 32.4 pg (27.0-31.0); MEAN CORPUSCULAR HGB CONC 33.3 g/dL (32.0-36.0); MEAN CORPUSCULAR VOLUME 97.1 fL (81.0-99.0); MEAN PLATELET VOLUME 11.7 fL (7.9-10.8); NEUTROPHILS % (AUTO) 77.4 %; PLT - PLATELET COUNT 104 10^3/uL (130-450); RED BLOOD COUNT 2.78 10^6/uL (4.20-5.40); RED CELL DISTRIBUTION WIDTH 16.6 % (12.0-15.0)
[2019-09-10 06:34] LABS: ABNORMAL LYMPHS % (MANUAL) 0 %; BAND NEUTROPHILS % (MANUAL) 0 %
[2019-09-10 06:37] LABS: INR 1.4 (0.8-1.2); PT - PROTHROMBIN TIME 15.8 secs (9.9-12.6)
[2019-09-10 06:41] LABS: ALBUMIN 2.7 g/dL (3.2-5.5); BILIRUBIN,DIRECT 0.4 mg/dL (0.1-0.5); BILIRUBIN,TOTAL 1.3 mg/dL (0.2-1.0); CREATININE 1.3 mg/dL (0.4-1.0); TOTAL PROTEIN 4.9 g/dL (6.7-8.2)
[2019-09-10 06:52] LABS: BASOPHILS # (MANUAL) 0.2 10^3/uL (0-0.1); BASOPHILS % (MANUAL) 1 %; LYMPHOCYTES # (MANUAL) 1.7 10^3/uL (1.5-3.5); LYMPHOCYTES % (MANUAL) 11 %; MONOCYTES # (MANUAL) 1.4 10^3/uL (0.0-1.0)
[2019-09-10 06:53] LABS: DIFFERENTIAL COMMENT MANUAL DIFFERENTIAL; PLATELET ESTIMATE, MANUAL DECREASED (<130,000) (NORMAL); PLATELET MORPHOLOGY NORMAL APPEARANCE (NORMAL); RBC MORPHOLOGY (MULTIPLE) NORMAL APPEARANCE (NORMAL)
[2019-09-10] MEDS: SODIUM CHLORIDE 0.9% 1,000 ML IV SCH ×2 (07:12→20:19)
[2019-09-10] MEDS: cefTRIAXone 1 GM in SODIUM CHLORIDE 0.9% MINIBAG 100 ML IV SCH (08:05)
[2019-09-10] MEDS: INSULIN ASPART 300 UNIT/3 ML PEN SUBQ SCH (08:05)
[2019-09-10] MEDS: PANTOPRAZOLE 40 MG VIAL IVP SCH ×2 (08:05→20:12)
[2019-09-10] MEDS ORDERED: LACTATED RINGERS 1,000 ML IV ONE (08:43)
[2019-09-10] MEDS ORDERED: INSULIN GLARGINE 300 UNIT/3 ML PEN SUBQ SCH ×2 (09:00→21:00)
[2019-09-10 10:52] LABS: BILIRUBIN,URINE NEGATIVE (NEGATIVE); GLUCOSE, URINE (UA) NEGATIVE (NEGATIVE); KETONES,URINE (UA) NEGATIVE (NEGATIVE); LEUKOCYTE ESTERASE, URINE NEGATIVE (NEGATIVE); NITRITE,URINE NEGATIVE (NEGATIVE); OCCULT BLOOD,URINE NEGATIVE (NEGATIVE); PROTEIN,URINE NEGATIVE (NEGATIVE); UROBILINOGEN,URINE 0.2 (NORMAL) E.U./dL (NORMAL)
[2019-09-10 10:56] LABS: CLARITY,URINE SL. CLOUDY (CLEAR)
[2019-09-10] MEDS: metroNIDAZOLE 500 MG/100 ML 500 MG/100 ML BAG IV SCH ×3 (11:06→22:13)
[2019-09-10 11:10] LABS: BACTERIA,URINE Few /HPF (None Seen); RBC,URINE 0-5 /HPF (0-5); SQUAMOUS EPITHELIAL CELL,UR MOD Squamous (<= Few)
[2019-09-10] MEDS: INSULIN REGULAR HUMAN 300 UNIT/3 ML VIAL SUBQ SCH ×2 (12:01→17:53)
--- NOTE | 2019-09-10 12:25 | PROVIDER PROGRESS NOTE ---
Subjective - Prog Note Date Prog Note Date: 09/10/19 - Subjective Subjective: She continues report feeling weak and fatigued. She had one bloody bowel movement overnight. She reports no dyspnea or chest pain. She also denies any abdominal pain or fever. She reports feeling quite thirsty and has been drinking a lot of water. Current Medications - Current Medications Current Medications: Active Medications Acetaminophen (Tylenol) 650 mg PO Q4HR PRN PRN Reason: Pain 1 to 4 Hydrocodone Bitart/Acetaminophen ([place] 5/325) 1 tab PO Q4HR PRN PRN Reason: Pain 5 to 7 Last Admin: 09/09/19 09:56 Dose: 1 tab Documented by: Sodium Chloride (Normal Saline 0.9%) 1,000 mls @ 100 mls/hr IV .Q10H [facility] Last Admin: 09/10/19 07:12 Dose: 100 mls/hr Documented by: Ceftriaxone Sodium 1 gm/ (Sodium Chloride) 100 mls @ 200 mls/hr IV DAILY [facility] Last Infusion: 09/10/19 09:53 Dose: Infused Documented by: Metronidazole (Flagyl 500 Mg/100 Ml) 500 mg in 100 mls @ 100 mls/hr IV TID [facility] Last Infusion: 09/10/19 12:41 Dose: Infused Documented by: Insulin Glargine (Lantus Solostar) 50 unit SUBQ BID [facility] Last Admin: 09/10/19 08:01 Dose: 50 unit Documented by: Insulin Human Regular (Humulin R) 3 - 11 unit SUBQ Q6HR [facility]; Protocol Last Admin: 09/10/19 12:01 Dose: 9 unit Documented by: Ondansetron HCl (Zofran Odt) 4 mg TL Q6HR PRN PRN Reason: Nausea / Vomiting Ondansetron HCl (Zofran Inj) 4 mg IVP Q6HR PRN PRN Reason: Nausea / Vomiting Pantoprazole Sodium (Protonix) 40 mg IVP BID [facility] Last Admin: 09/10/19 08:05 Dose: 40 mg Documented by: Phenol/Menthol (Chloraseptic) 1 sprays MM Q4HR PRN PRN Reason: Mouth Sore Pain Sodium Chloride (Normal Saline Flush 0.9%) 10 ml IVP PRN PRN PRN Reason: NEEDED PER PROVIDER ORDERS Last Admin: 09/09/19 21:11 Dose: 10 ml Documented by: Sodium Chloride (Normal Saline Flush 0.9%) 10 ml IVP 0100,0900,1700 PAULO Last Admin: 09/10/19 08:06 Dose: 10 ml Documented by: Amlodipine Besylate 10 mg PO DAILY 09/08/19 Cholecalciferol (Vitamin D3) [Vitamin D3] 25 mcg PO DAILY 09/08/19 Insulin Glargine [Lantus Solostar] 90 unit SQ BID 09/08/19 Lisinopril [Zestril] 40 mg PO BID 09/08/19 Metformin HCl [Metformin HCl ER] 500 mg PO BID 09/08/19 Metoprolol Tartrate 25 mg PO BID 09/08/19 Objective - Vital Signs/Intake & Output Reviewed Vital Signs: Yes Vital Signs: Vital Signs x48h Temp Pulse Resp BP Pulse Ox 09/10/19 07:45 37.8 C H 116 H 18 129/39 L 95 Intake & Output: Intake & Output 09/07/19 09/08/19 09/09/19 09/10/19 23:59 23:59 23:59 23:59 Intake Total 110 3622.667 2160 Output Total 250 281 Balance -140 3341.667 2160 - Objective General Appearance: positive: Mild distress, Lethargic Eyes: OU Conjunctivae pale ENT: positive: ENT inspection nml Neck: positive: Nml inspection Cardiovascular: positive: No murmur, Tachycardia. negative: Regular rate & rhythm, Bradycardia, Systolic murmur Abdomen: positive: Non-tender, No distention. negative: Tenderness, Guarding, Rebound, Abnml bowel sounds Skin: positive: No rash, Warm, Dry, Pallor Extremities: positive: No pedal edema Neurologic/Psychiatric: positive: Oriented x3, Motor nml - Lab Results Fish Bones: 09/10/19 14:05 09/10/19 05:55 Other Labs: Lab Results x24hrs 09/10/19 09/10/19 09/10/19 Range/Units 11:33 10:45 08:45 WBC (4.8-10.8) x10^3/uL RBC (4.20-5.40) 10^6/uL Hgb (12.0-16.0) g/dL Hct (37.0-47.0) % MCV (81.0-99.0) fL MCH (27.0-31.0) pg MCHC (32.0-36.0) g/dL RDW (12.0-15.0) % Plt Count (130-450) 10^3/uL MPV (7.9-10.8) fL Neut # (Auto) Lymph # (Auto) Miller # (Auto) Eos # (Auto) Baso # (Auto) Absolute Nucleated RBC Total Counted Band Neuts % (Manual) (0 - 10) % Abnorm Lymph % (Manual) % Nucleated RBC % Neutrophils # (Manual) (1.5-6.6) 10^3/uL Lymphocytes # (Manual) (1.5-3.5) 10^3/uL Monocytes # (Manual) (0.0-1.0) 10^3/uL Eosinophils # (Manual) (0-0.7) 10^3/uL Basophils # (Manual) (0-0.1) 10^3/uL Differential Comment WBC Morphology (NORMAL) Platelet Estimate (NORMAL) Platelet Morphology (NORMAL) RBC Morph Micro Appear (NORMAL) PT (9.9-12.6) secs INR (0.8-1.2) Sodium (135-145) mmol/L Potassium (3.5-5.0) mmol/L Chloride (101-111) mmol/L Carbon Dioxide (21-32) mmol/L Anion Gap (6-13) BUN (6-20) mg/dL Creatinine (0.4-1.0) mg/dL Estimated GFR (MDRD) (>89) Glucose (70-100) mg/dL POC Whole Bld Glucose 284 H (70 - 100) mg/dL Lactic Acid 2.0 (0.5-2.2) mmol/L Calcium (8.5-10.3) mg/dL Total Bilirubin (0.2-1.0) mg/dL Direct Bilirubin (0.1-0.5) mg/dL AST (10-42) IU/L ALT (10-60) IU/L Alkaline Phosphatase (42-121) IU/L Troponin I High Sens (2.3-14.8) ng/L Total Protein (6.7-8.2) g/dL Albumin (3.2-5.5) g/dL Globulin (2.1-4.2) g/dL Urine Color YELLOW Urine Clarity SL. CLOUDY (CLEAR) Urine pH 5.0 (5.0-7.5) PH Ur Specific [place] >=1.030 H (1.002-1.030) Urine Protein NEGATIVE (NEGATIVE) mg/dL Urine Glucose (UA) NEGATIVE (NEGATIVE) mg/dL Urine Ketones NEGATIVE (NEGATIVE) mg/dL Urine Occult Blood NEGATIVE (NEGATIVE) Urine Nitrite NEGATIVE (NEGATIVE) Urine Bilirubin NEGATIVE (NEGATIVE) Urine Urobilinogen 0.2 (NORMAL) (NORMAL) E.U./dL Ur Leukocyte Esterase NEGATIVE (NEGATIVE) Urine RBC 0-5 (0-5) /HPF Urine WBC 0-3 (0-5) /HPF Ur Squamous Epith Cells MOD Squamous H (<= Few) Urine Bacteria Few (None Seen) /HPF Urine Culture Comments NOT INDICATED Blood Type Antibody Screen Crossmatch IS Only 09/10/19 09/10/19 09/10/19 Range/Units 07:39 05:55 05:55 WBC (4.8-10.8) x10^3/uL RBC (4.20-5.40) 10^6/uL Hgb (12.0-16.0) g/dL Hct (37.0-47.0) % MCV (81.0-99.0) fL MCH (27.0-31.0) pg MCHC (32.0-36.0) g/dL RDW (12.0-15.0) % Plt Count (130-450) 10^3/uL MPV (7.9-10.8) fL Neut # (Auto) Lymph # (Auto) Miller # (Auto) Eos # (Auto) Baso # (Auto) Absolute Nucleated RBC Total Counted Band Neuts % (Manual) (0 - 10) % Abnorm Lymph % (Manual) % Nucleated RBC % Neutrophils # (Manual) (1.5-6.6) 10^3/uL Lymphocytes # (Manual) (1.5-3.5) 10^3/uL Monocytes # (Manual) (0.0-1.0) 10^3/uL Eosinophils # (Manual) (0-0.7) 10^3/uL Basophils # (Manual) (0-0.1) 10^3/uL Differential Comment WBC Morphology (NORMAL) Platelet Estimate (NORMAL) Platelet Morphology (NORMAL) RBC Morph Micro Appear (NORMAL) PT 15.8 H (9.9-12.6) secs INR 1.4 H (0.8-1.2) Sodium (135-145) mmol/L Potassium (3.5-5.0) mmol/L Chloride (101-111) mmol/L Carbon Dioxide (21-32) mmol/L Anion Gap (6-13) BUN (6-20) mg/dL Creatinine (0.4-1.0) mg/dL Estimated GFR (MDRD) (>89) Glucose (70-100) mg/dL POC Whole Bld Glucose 277 H (70 - 100) mg/dL Lactic Acid (0.5-2.2) mmol/L Calcium (8.5-10.3) mg/dL Total Bilirubin (0.2-1.0) mg/dL Direct Bilirubin (0.1-0.5) mg/dL AST (10-42) IU/L ALT (10-60) IU/L Alkaline Phosphatase (42-121) IU/L Troponin I High Sens 23.0 H* (2.3-14.8) ng/L Total Protein (6.7-8.2) g/dL Albumin (3.2-5.5) g/dL Globulin (2.1-4.2) g/dL Urine Color Urine Clarity (CLEAR) Urine pH (5.0-7.5) PH Ur Specific [place] (1.002-1.030) Urine Protein (NEGATIVE) mg/dL Urine Glucose (UA) (NEGATIVE) mg/dL Urine Ketones (NEGATIVE) mg/dL Urine Occult Blood (NEGATIVE) Urine Nitrite (NEGATIVE) Urine Bilirubin (NEGATIVE) Urine Urobilinogen (NORMAL) E.U./dL Ur Leukocyte Esterase (NEGATIVE) Urine RBC (0-5) /HPF Urine WBC (0-5) /HPF Ur Squamous Epith Cells (<= Few) Urine Bacteria (None Seen) /HPF Urine Culture Comments Blood Type Antibody Screen Crossmatch IS Only 09/10/19 09/10/19 09/09/19 Range/Units 05:55 05:55 21:00 WBC 15.0 H (4.8-10.8) x10^3/uL RBC 2.78 L (4.20-5.40) 10^6/uL Hgb 9.0 L (12.0-16.0) g/dL Hct 27.0 L (37.0-47.0) % MCV 97.1 (81.0-99.0) fL MCH 32.4 H (27.0-31.0) pg MCHC 33.3 (32.0-36.0) g/dL RDW 16.6 H (12.0-15.0) % Plt Count 104 L (130-450) 10^3/uL MPV 11.7 H (7.9-10.8) fL Neut # (Auto) Not Reportable Lymph # (Auto) Not Reportable Miller # (Auto) Not Reportable Eos # (Auto) Not Reportable Baso # (Auto) Not Reportable Absolute Nucleated RBC Not Reportable Total Counted 100 Band Neuts % (Manual) 0 (0 - 10) % Abnorm Lymph % (Manual) 0 % Nucleated RBC % Not Reportable Neutrophils # (Manual) 11.9 H (1.5-6.6) 10^3/uL Lymphocytes # (Manual) 1.7 (1.5-3.5) 10^3/uL Monocytes # (Manual) 1.4 H (0.0-1.0) 10^3/uL Eosinophils # (Manual) 0.0 (0-0.7) 10^3/uL Basophils # (Manual) 0.2 H (0-0.1) 10^3/uL Differential Comment MANUAL DIFFERENTIAL WBC Morphology NORMAL APPEARANCE (NORMAL) Platelet Estimate DECREASED (<130,000) (NORMAL) Platelet Morphology NORMAL APPEARANCE (NORMAL) RBC Morph Micro Appear NORMAL APPEARANCE (NORMAL) PT (9.9-12.6) secs INR (0.8-1.2) Sodium 139 (135-145) mmol/L Potassium 4.2 (3.5-5.0) mmol/L Chloride 104 (101-111) mmol/L Carbon Dioxide 27 (21-32) mmol/L Anion Gap 8.0 (6-13) BUN 53 H (6-20) mg/dL Creatinine 1.3 H (0.4-1.0) mg/dL Estimated GFR (MDRD) 40 L (>89) Glucose 276 H (70-100) mg/dL POC Whole Bld Glucose 266 H (70 - 100) mg/dL Lactic Acid (0.5-2.2) mmol/L Calcium 8.0 L (8.5-10.3) mg/dL Total Bilirubin 1.3 H (0.2-1.0) mg/dL Direct Bilirubin 0.4 (0.1-0.5) mg/dL AST 161 H (10-42) IU/L ALT 122 H (10-60) IU/L Alkaline Phosphatase 42 (42-121) IU/L Troponin I High Sens (2.3-14.8) ng/L Total Protein 4.9 L (6.7-8.2) g/dL Albumin 2.7 L (3.2-5.5) g/dL Globulin 2.2 (2.1-4.2) g/dL Urine Color Urine Clarity (CLEAR) Urine pH (5.0-7.5) PH Ur Specific [place] (1.002-1.030) Urine Protein (NEGATIVE) mg/dL Urine Glucose (UA) (NEGATIVE) mg/dL Urine Ketones (NEGATIVE) mg/dL Urine Occult Blood (NEGATIVE) Urine Nitrite (NEGATIVE) Urine Bilirubin (NEGATIVE) Urine Urobilinogen (NORMAL) E.U./dL Ur Leukocyte Esterase (NEGATIVE) Urine RBC (0-5) /HPF Urine WBC (0-5) /HPF Ur Squamous Epith Cells (<= Few) Urine Bacteria (None Seen) /HPF Urine Culture Comments Blood Type Antibody Screen Crossmatch IS Only 09/09/19 09/09/19 09/08/19 Range/Units 17:43 16:37 17:19 WBC (4.8-10.8) x10^3/uL RBC (4.20-5.40) 10^6/uL Hgb 9.7 L (12.0-16.0) g/dL Hct 28.8 L (37.0-47.0) % MCV (81.0-99.0) fL MCH (27.0-31.0) pg MCHC (32.0-36.0) g/dL RDW (12.0-15.0) % Plt Count (130-450) 10^3/uL MPV (7.9-10.8) fL Neut # (Auto) Lymph # (Auto) Miller # (Auto) Eos # (Auto) Baso # (Auto) Absolute Nucleated RBC Total Counted Band Neuts % (Manual) (0 - 10) % Abnorm Lymph % (Manual) % Nucleated RBC % Neutrophils # (Manual) (1.5-6.6) 10^3/uL Lymphocytes # (Manual) (1.5-3.5) 10^3/uL Monocytes # (Manual) (0.0-1.0) 10^3/uL Eosinophils # (Manual) (0-0.7) 10^3/uL Basophils # (Manual) (0-0.1) 10^3/uL Differential Comment WBC Morphology (NORMAL) Platelet Estimate (NORMAL) Platelet Morphology (NORMAL) RBC Morph Micro Appear (NORMAL) PT (9.9-12.6) secs INR (0.8-1.2) Sodium (135-145) mmol/L Potassium (3.5-5.0) mmol/L Chloride (101-111) mmol/L Carbon Dioxide (21-32) mmol/L Anion Gap (6-13) BUN (6-20) mg/dL Creatinine (0.4-1.0) mg/dL Estimated GFR (MDRD) (>89) Glucose (70-100) mg/dL POC Whole Bld Glucose 257 H (70 - 100) mg/dL Lactic Acid (0.5-2.2) mmol/L Calcium (8.5-10.3) mg/dL Total Bilirubin (0.2-1.0) mg/dL Direct Bilirubin (0.1-0.5) mg/dL AST (10-42) IU/L ALT (10-60) IU/L Alkaline Phosphatase (42-121) IU/L Troponin I High Sens (2.3-14.8) ng/L Total Protein (6.7-8.2) g/dL Albumin (3.2-5.5) g/dL Globulin (2.1-4.2) g/dL Urine Color Urine Clarity (CLEAR) Urine pH (5.0-7.5) PH Ur Specific [place] (1.002-1.030) Urine Protein (NEGATIVE) mg/dL Urine Glucose (UA) (NEGATIVE) mg/dL Urine Ketones (NEGATIVE) mg/dL Urine Occult Blood (NEGATIVE) Urine Nitrite (NEGATIVE) Urine Bilirubin (NEGATIVE) Urine Urobilinogen (NORMAL) E.U./dL Ur Leukocyte Esterase (NEGATIVE) Urine RBC (0-5) /HPF Urine WBC (0-5) /HPF Ur Squamous Epith Cells (<= Few) Urine Bacteria (None Seen) /HPF Urine Culture Comments Blood Type A POSITIVE Antibody Screen NEGATIVE Crossmatch IS Only See Detail Assessment/Plan - Problem List (1) GI bleed Impression: She did have another bloody bowel movement overnight but this appears to be sl owing down. Her hemoglobin continues to slowly trend down this could also be dilutional. We will continue to monitor for signs of bleeding and check her hemoglobin every 8 hours. Suspect this bleeding is secondary to the mass found on EGD. She will need a repeat EGD during his hospitalization for tissue biopsy. If she continues to have significant bleeding then she will be transferred to higher level care per general surgery. Continue with Protonix IV. Clear liquid diet as tolerated. Qualifiers: GI bleed type/associated pathology: unspecified gastrointestinal hemorrhage type Qualified Code(s): K92.2 - Gastrointestinal hemorrhage, unspecified (2) Anemia due to acute blood loss Impression: She responded appropriately to 3 units of packed red blood cells yesterday. Hemoglobin is trending down. We will continue to monitor this every 8 hours and transfuse as needed. If she continues to bleed then he may need to transfer to higher level care as per general surgery recommendations. Continue with SCDs for DVT prophylaxis. Hold chemical DVT prophylaxis. (3) SIRS (systemic inflammatory response syndrome) Impression: She does meet SIRS criteria given tachycardia and leukocytosis. She had a temperature of present 37.8 C this morning. Her lactic acid all had also been elevated on admission. She was started on ceftriaxone IV empirically yesterday and Flagyl was added today. Her urinalysis not suggest infection. Her blood cultures have been negative to date. We will check a chest x-ray to rule out an underlying pneumonia. CT of the abdomen pelvis on admission was concerning for possible early acute appendicitis but clinically should not appear to have been a status as she is not tender on at all on examination. Will discuss with general surgery regarding their thoughts. For time being we will keep her on ceftriaxone and Flagyl IV empirically. Trend her white count and follow-up cultures. Continue with IV fluids. 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 The mass was at the GE junction. Biopsy was not obtained due to ongoing bleeding. She will need a repeat EGD during his hospitalization or transfer to higher level care for endoscopy if she continues to bleed. This was discussed with the family and they are aware that this is co ncerning for possible malignancy. (5) Liver cirrhosis Impression: This was evident on CT of the abdomen pelvis and suspect secondary to BERNARD. Her LFTs are now elevated and she is slightly thrombocytopenic with an elevated INR 1.4. We will obtain a right upper quadrant ultrasound today for further evaluation. Monitor her LFTs. If they continue to rise we will check hepatitis panel as well. (6) Controlled type 2 diabetes mellitus without complication, with long-term current use of insulin Impression: Her blood glucose has been elevated at greater than 250. We will increase her Lantus to 70 units twice daily and continue with sliding scale. Clear liquid diet as tolerated. If her blood culture ramirez elevated I will increase her Lantus to her home dose of 90 units twice daily. (7) Hypertension Impression: She currently remains normotensive with a wide pulse pressure. We will continue to hold her home antihypertensives given the bleeding. We will resume when c linically indicated. Qualifiers: Hypertension type: essential hypertension Qualified Code(s): I10 - Essential (primary) hypertension (8) Acidosis, lactic Impression: This has resolved. Suspect may have been due to poor liver clearance given cirrhosis as well as hypoperfusion given the GI bleed and acute blood loss anemia.
[2019-09-10 14:11] LABS: HGB - HEMOGLOBIN 8.5 g/dL (12.0-16.0)
--- NOTE | 2019-09-10 16:35 | XRAY Report ---
PROCEDURE: Chest 1 View X-Ray INDICATIONS: Tachypnea. Hypoxia. TECHNIQUE: One view of the chest was acquired. COMPARISON: 09/09/2018 FINDINGS: Surgical changes and devices: None. Lungs and pleura: No pleural effusions or pneumothorax. There is mild pulmonary vascular congestion. No focal infiltrate. Mediastinum: Mediastinal contours appear normal. Heart size is enlarged. Bones and chest wall: No suspicious bony lesions. Overlying soft tissues appear unremarkable. IMPRESSION: Cardiomegaly and mild congestion. No focal infiltrate, pleural effusion or pneumothorax. Reviewed by: Sterling Nichole MD on 09/10/2019 4:33 PM PDT Approved by: Sterling Nichole MD on 09/10/2019 4:33 PM PDT Station ID: [id number]
--- NOTE | 2019-09-10 19:29 | Ultrasound Report ---
PROCEDURE: Abdomen Limited INDICATIONS: Abnormal LFT's. TECHNIQUE: Real-time scanning was performed of the abdominal and retroperitoneal organs, with image documentatio n. COMPARISON: CT angiogram of abdomen and pelvis dated 09/08/2019. FINDINGS: Liver: Liver is atrophic in size. Coarsely echogenic liver parenchyma is seen with nodular liver con tour consistent with patient's known cirrhosis. No discrete hepatic lesion is identified. Gallbladder: Gallbladder is surgically absent. Biliary ducts: Intrahepatic bile ducts are non-dilated. Extrahepatic bile duct caliber measures 6.5 mm. Normal is 6-7 mm or less in diameter, or 10 mm or less post-cholecystectomy. Pancreas: Visualized portions of the pancreatic head is slightly echogenic. No discrete pancreatic l esion is seen. Kidneys: Right kidney measures 10 cm in length. No hydronephrosis or nephrolithiasis. No solid mass es. IMPRESSION: 1. Cirrhotic appearing liver, no discrete hepatic lesion is seen. 2. Prior cholecystectomy. No biliary ductal dilatation. 3. Nonspecific visualized echogenic pancreatic parenchyma. No discrete pancreatic lesion. Reviewed by: Sterling Nichole MD on 09/10/2019 7:28 PM PDT Approved by: Sterling Nichole MD on 09/10/2019 7:28 PM PDT Station ID: [id number]
[2019-09-10] MEDS: HYDROcod/ACETAM 5/325 MG TABLET PO PRN (20:07)
[2019-09-10] MEDS: ACETAMINOPHEN 325 MG TABLET PO PRN (20:08)
[2019-09-10] MEDS: SODIUM CHLORIDE FLUSH 0.9% 10 ML SYRINGE IVP PRN (20:12)
[2019-09-10 22:13] LABS: HGB - HEMOGLOBIN 8.3 g/dL (12.0-16.0)
[2019-09-11] MEDS: INSULIN REGULAR HUMAN 300 UNIT/3 ML VIAL SUBQ SCH (00:05)
[2019-09-11] MEDS: SODIUM CHLORIDE FLUSH 0.9% 10 ML SYRINGE IVP SCH ×2 (00:08→08:25)
[2019-09-11] MEDS: ACETAMINOPHEN 325 MG TABLET PO PRN (00:21)
[2019-09-11 05:29] LABS: BASOPHILS % (AUTO) 0.3 %; EOSINOPHILS % (AUTO) 0.1 %; HGB - HEMOGLOBIN 8.2 g/dL (12.0-16.0); LYMPHOCYTES % (AUTO) 11.1 %; MEAN CORPUSCULAR HEMOGLOBIN 33.1 pg (27.0-31.0); MEAN CORPUSCULAR HGB CONC 33.2 g/dL (32.0-36.0); MEAN CORPUSCULAR VOLUME 99.6 fL (81.0-99.0); MEAN PLATELET VOLUME 10.7 fL (7.9-10.8); MONOCYTES % (AUTO) 11.3 %; NEUTROPHILS % (AUTO) 76.4 %; PLT - PLATELET COUNT 131 10^3/uL (130-450); RED BLOOD COUNT 2.48 10^6/uL (4.20-5.40); RED CELL DISTRIBUTION WIDTH 16.6 % (12.0-15.0); WHITE BLOOD COUNT 16.8 x10^3/uL (4.8-10.8)
[2019-09-11 05:32] LABS: ABNORMAL LYMPHS % (MANUAL) 0 %; BAND NEUTROPHILS % (MANUAL) 0 %
[2019-09-11] MEDS: metroNIDAZOLE 500 MG/100 ML 500 MG/100 ML BAG IV SCH (05:42)
[2019-09-11 05:44] LABS: ALBUMIN 2.6 g/dL (3.2-5.5); BILIRUBIN,DIRECT 0.4 mg/dL (0.1-0.5); BILIRUBIN,TOTAL 0.8 mg/dL (0.2-1.0); CALCIUM 7.7 mg/dL (8.5-10.3); CREATININE 2.2 mg/dL (0.4-1.0); MAGNESIUM 1.7 mg/dL (1.7-2.8); TOTAL PROTEIN 5.1 g/dL (6.7-8.2)
[2019-09-11 06:14] LABS: LYMPHOCYTES # (MANUAL) 1.2 10^3/uL (1.5-3.5); LYMPHOCYTES % (MANUAL) 7 %; MONOCYTES # (MANUAL) 1.5 10^3/uL (0.0-1.0)
[2019-09-11 06:15] LABS: DIFFERENTIAL COMMENT MANUAL DIFFERENTIAL; PLATELET ESTIMATE, MANUAL NORMAL (130-450,000) (NORMAL); PLATELET MORPHOLOGY NORMAL APPEARANCE (NORMAL); RBC MORPHOLOGY (MULTIPLE) 1+ ANISOCYTOSIS (NORMAL)
[2019-09-11] MEDS ORDERED: LACTATED RINGERS 1,000 ML IV ONE (07:28)
--- NOTE | 2019-09-11 07:40 | DISCHARGE SUMMARY ---
"Discharge Summary Admit Date: 09/08/19 Discharge Date: 09/11/19 Discharging Provider: Anthony Buck Primary Care Provider: Cheryle Ivan Code Status: Attempt Resuscitation Condition at Discharge: Serious Discharge Disposition: 02 Transfer Acute Care Hosp Discharge Facility Name: [facility] - DIAGNOSES Admission Diagnoses: GI bleed Anemia due to acute blood loss Hypertension Trolled type 2 diabetes mellitus without complication, with long-term current use of insulin Obstructive sleep apnea Anxiety about health Cold intolerance Lactic acidosis Home help needed Discharge Diagnoses with Status of Each Condition: GI bleed - ongoing. Anemia due to acute blood loss - ongoing. SIRS - ongoing. HCAP? - ongoing. Acute kidney injury - worsening. 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 Liver cirrhosis - stable. Controlled type 2 diabetes mellitus - stable. Hypertension - stable. Lactic acidosis - resolved. - HPI History of Present Illness: H&P per Dr. Ye: The patient is a 74-year-old white female who has a history of hypertension and hyperlipidemia and diabetes with obstructive sleep apnea whose previous abdominal history consist of hysterectomy, and an episode of severe abdominal pain resulting in a CT scan of the abdomen in May 2015. Other than diverticulosis, nonobstructing renal stones, nothing was found. Yesterday she started having some nausea. Did not feel well but no fever, chills. There is no one sick in her family. She has had no recent travel. She has a previous EGD and colonoscopy that have been normal. Into the evening and last night she had abdominal discomfort with nausea and some cramping. This morning she began having black stool and went to her primary care provider office with a sample of the stool. It was melena, OB positive. She was sent to our emergency room where she was evaluated by nurse practitioner Renzo. She was afebrile at 36.1. Pulse was 88. Normotensive at 125/62. 96% on room air. She had hyperactive bowel sounds. No focal tenderness, rebound or guarding.Abdomen and pelvis CT with angiogram does not show any active bleeding. She has a micronodular liver compatible with cirrhosis. She has prominent mid to left abdominal small bowel containing air-fluid levels. Mild inflammation along the right paracolic gutter adjacent to the appendix. The colon is decompressed. A few colonic sigmoid diverticula. No acute pericolonic inflammation. Mild anasarca of the lower anterior abdominal body wall. - CONSULTS | PROCEDURES Consultations: General Surgery Procedures: She underwent endoscopy on September 07 with general surgery which showed a mass at the GE junction. There was also blood noted throughout the stomach. - HOSPITAL COURSE Hospital Course: She was admitted for acute blood loss anemia secondary to GI bleed. She underwent a CT angiogram of the abdomen pelvis in the emergency department which showed Abnormal small bowel loops which may indicate enteritis, inflammatory bowel disease but less likely ischemia as she has patent vasculature. There was sigmoid diverticulosis but no definitive's colonic source of bleeding. There was nonspecific minor inflammation in the right paracolic gutter adjacent to a normal-appearing appendix. These findings were equivocal for mild, early, acute appendicitis. Cirrhotic liver was noted. NG tube was placed and she had over 150 mL of bloody output. She underwent an EGD that evening which showed blood throughout the stomach and a mass at the GE junction. This was not biopsied due to the ongoing bleeding. General surgery recommended to either repeat an endoscopy once her bleeding subsided or to transfer to a higher level of care. Her hemoglobin had decreased from the high 9's to 5.8 shortly after admission. She was transfused 3 units of packed red blood cell with improvement of her hemoglobin back to approximately 9.7. This has slowly trended down and today it is in the mid 8's. She has continued to have small episodes of bloody bowel movements. She remains on Protonix IV 40 mg twice daily. She was given 1 unit of FFP despite her INR being 1.4 per the recommendation of general surgery. Her repeat INR remained stable at 1.4 Her LFTs were initially normal on admission but these increased throughout her hospital stay. An ultrasound of the right upper quadrant was obtained which jovanna wed a prior cholecystectomy and her liver did appear cirrhotic. Her INR is stable at 1.4. Her platelets are stable at 131. Her albumin is decreased at 2.6. She has no prior history of alcohol use and suspect that this may be secondary to BERNARD given her obesity and diabetes. During this hospitalization, her white count also continue to increase. It was initially 10.3 on admission and it is now 16.8. She had blood cultures drawn which were negative to date. Her urinalysis and chest x-ray were not suggestive of any obvious source of infection. She was started on September 08 on ceftriaxone and Flagyl empirically. A repeat CT of the abdomen pelvis without contrast today showed Which showed persistent small bowel inflammation and possible interval development of pancreatitis given peripancreatic stranding. There was also development of interval pleural effusions with superimposed consolidation which may be atelectasis or pneumonia. A lipase was rechecked which was within normal limits. Her ceftriaxone was discontinued and she was started on Cefepime for possible HCAP. Her creatinine was 0.9 on admission and increased to 1.1 but had been stable during his hospitalization. On her final hospital day, her creatinine had nearly doubled to 2.2 and she became oliguric. Urine sodium was obtained which was less than 12. A CT the abdomen pelvis without contrast showed no hydronephrosis or obstruction. A Wesley catheter was placed. She was administered further IV fluids with a bolus and continued on maintenance fluids. He did have an EKG during his hospitalization which showed a sinus tachycardia with a right bundle branch block and nonspecific T wave abnormalities. Her high sensitivity troponin was slightly elevated in the mid 20's and then increased to mid 40's. This was felt to be demand ischemia given her anemia, acute kidney injury and possible sepsis. Given her ongoing bleeding and worsening renal function, [facility] was contacted for transfer to higher level of care as she would benefit from gastroenterology evaluation for this GE mass and another endoscopy as well as nephrology evaluation for her acute kidney injury. Patient was graciously acce pted for transfer by Dr. Schwartz. Family was updated on the transfer and she will be transferred via ambulance. - ALLERGIES Allergies/Adverse Reactions: Allergies Allergy/AdvReac Type Severity Reaction Status Date / Time No Known Drug Allergies Allergy Verified 09/08/19 16:56 - MEDICATIONS Home Medications: Ambulatory Orders Medication Instructions Recorded Confirmed Amlodipine Besylate 10 mg PO DAILY 09/08/19 09/08/19 Cholecalciferol (Vitamin D3) 25 mcg PO DAILY 09/08/19 09/08/19 [Vitamin D3] Insulin Glargine [Lantus Solostar] 90 unit SQ BID 09/08/19 09/08/19 Lisinopril [Zestril] 40 mg PO BID 09/08/19 09/08/19 Metformin HCl [Metformin HCl ER] 500 mg PO BID 09/08/19 09/08/19 Metoprolol Tartrate 25 mg PO BID 09/08/19 09/08/19 - PHYSICAL EXAM AT DISCHARGE General Appearance: positive: Mild distress, Lethargic Eyes Bilateral: positive: Other (Conjuctival pallor.) ENT: positive: ENT inspection nml Neck: positive: Nml inspection Respiratory: positive: No respiratory distress, Other (Diminished breath sounds in bases.). negative: Wheezes, Rales Cardiovascular: positive: No murmur, Tachycardia. negative: Irregularly irregular, Bradycardia, Systolic murmur Abdomen: positive: Non-tender, Nml bowel sounds, No distention. negative: Tenderness, Guarding, Rebound Skin: positive: Warm, Dry, Pallor Extremities: positive: No pedal edema Neurologic/Psychiatric: positive: Disoriented to time, Other (No focal deficits on exam.). negative: Disoriented to person, Disoriented to place Physical Exam Other/Comments: Vital Signs - 24 hr 09/10/19 09/10/19 09/10/19 12:53 17:00 21:00 Temperature 36.7 C 37.1 C 37.1 C Heart Rate [ 111 H 110 H 113 H Brachial] Respiratory 20 22 20 Rate Blood Pressure [Left Radial artery] Blood Pressure 113/41 L 142/45 H 116/78 [Right Brachial artery] O2 Saturation 94 96 97 09/11/19 09/11/19 09/11/19 00:00 01:58 02:05 Temperature 37.7 C H 37.4 C Heart Rate [ 113 H 113 H Brachial] Respiratory 20 Rate Blood Pressure 134/40 H [Left Radial artery] Blood Pressure 118/38 L [Right Brachial artery] O2 Saturation 97 09/11/19 09/11/19 09/11/19 04:30 06:12 09:00 Temperature 37 C 36.4 C L Heart Rate [ 106 H 106 H Brachial] Respiratory 18 18 Rate Blood Pressure 124/42 L 124/50 L [Left Radial artery] Blood Pressure 129/44 L [Right Brachial artery] O2 Saturation 95 97 - LABS Result Diagrams: 09/11/19 05:00 09/11/19 05:00 Other Lab Results: Laboratory Results - last 24 hr 09/10/19 09/10/19 09/10/19 10:45 11:33 12:52 WBC RBC Hgb Hct MCV MCH MCHC RDW Plt Count MPV Neut # (Auto) Lymph # (Auto) Mcpherson # (Auto) Eos # (Auto) Baso # (Auto) Absolute Nucleated RBC Total Counted Band Neuts % (Manual) Abnorm Lymph % (Manual) Nucleated RBC % Neutrophils # (Manual) Lymphocytes # (Manual) Monocytes # (Manual) Eosinophils # (Manual) Basophils # (Manual) Nucleated RBCs Differential Comment WBC Morphology Platelet Estimate Platelet Morphology RBC Morph Micro Appear Sodium Potassium Chloride Carbon Dioxide Anion Gap BUN Creatinine Estimated GFR (MDRD) Glucose POC Whole Bld Glucose 284 H 285 H Calcium Phosphorus Magnesium Total Bilirubin Direct Bilirubin AST ALT Alkaline Phosphatase Ammonia Troponin I High Sens Total Protein Albumin Globulin Lipase Urine Color YELLOW Urine Clarity SL. CLOUDY Urine pH 5.0 Ur Specific Douglas >=1.030 H Urine Protein NEGATIVE Urine Glucose (UA) NEGATIVE Urine Ketones NEGATIVE Urine Occult Blood NEGATIVE Urine Nitrite NEGATIVE Urine Bilirubin NEGATIVE Urine Urobilinogen 0.2 (NORMAL) Ur Leukocyte Esterase NEGATIVE Urine RBC 0-5 Urine WBC 0-3 Ur Squamous Epith Cells MOD Squamous H Urine Bacteria Few Urine Culture Comments NOT INDICATED Urine Sodium 09/10/19 09/10/19 09/10/19 14:05 17:09 20:18 WBC RBC Hgb 8.5 L Hct 25.1 L MCV MCH MCHC RDW Plt Count MPV Neut # (Auto) Lymph # (Auto) Mcpherson # (Auto) Eos # (Auto) Baso # (Auto) Absolute Nucleated RBC Total Counted Band Neuts % (Manual) Abnorm Lymph % (Manual) Nucleated RBC % Neutrophils # (Manual) Lymphocytes # (Manual) Monocytes # (Manual) Eosinophils # (Manual) Basophils # (Manual) Nucleated RBCs Differential Comment WBC Morphology Platelet Estimate Platelet Morphology RBC Morph Micro Appear Sodium Potassium Chloride Carbon Dioxide Anion Gap BUN Creatinine Estimated GFR (MDRD) Glucose POC Whole Bld Glucose 316 H 310 H Calcium Phosphorus Magnesium Total Bilirubin Direct Bilirubin AST ALT Alkaline Phosphatase Ammonia Troponin I High Sens Total Protein Albumin Globulin Lipase Urine Color Urine Clarity Urine pH Ur Specific Douglas Urine Protein Urine Glucose (UA) Urine Ketones Urine Occult Blood Urine Nitrite Urine Bilirubin Urine Urobilinogen Ur Leukocyte Esterase Urine RBC Urine WBC Ur Squamous Epith Cells Urine Bacteria Urine Culture Comments Urine Sodium 09/10/19 09/10/19 09/10/19 21:00 22:07 23:54 WBC RBC Hgb 8.3 L Hct 24.9 L MCV MCH MCHC RDW Plt Count MPV Neut # (Auto) Lymph # (Auto) Mcpherson # (Auto) Eos # (Auto) Baso # (Auto) Absolute Nucleated RBC Total Counted Band Neuts % (Manual) Abnorm Lymph % (Manual) Nucleated RBC % Neutrophils # (Manual) Lymphocytes # (Manual) Monocytes # (Manual) Eosinophils # (Manual) Basophils # (Manual) Nucleated RBCs Differential Comment WBC Morphology Platelet Estimate Platelet Morphology RBC Morph Micro Appear Sodium Potassium Chloride Carbon Dioxide Anion Gap BUN Creatinine Estimated GFR (MDRD) Glucose POC Whole Bld Glucose 331 H Calcium Phosphorus Magnesium Total Bilirubin Direct Bilirubin AST ALT Alkaline Phosphatase Ammonia Troponin I High Sens Total Protein Albumin Globulin Lipase Urine Color Urine Clarity Urine pH Ur Specific Douglas Urine Protein Urine Glucose (UA) Urine Ketones Urine Occult Blood Urine Nitrite Urine Bilirubin Urine Urobilinogen Ur Leukocyte Esterase Urine RBC Urine WBC Ur Squamous Epith Cells Urine Bacteria Urine Culture Comments Urine Sodium < 12.0 09/11/19 09/11/19 09/11/19 05:00 05:00 05:00 WBC 16.8 H RBC 2.48 L Hgb 8.2 L Hct 24.7 L MCV 99.6 H MCH 33.1 H MCHC 33.2 RDW 16.6 H Plt Count 131 MPV 10.7 Neut # (Auto) Not Reportable Lymph # (Auto) Not Reportable Mcpherson # (Auto) Not Reportable Eos # (Auto) Not Reportable Baso # (Auto) Not Reportable Absolute Nucleated RBC Not Reportable Total Counted 100 Band Neuts % (Manual) 0 Abnorm Lymph % (Manual) 0 Nucleated RBC % Not Reportable Neutrophils # (Manual) 14.1 H Lymphocytes # (Manual) 1.2 L Monocytes # (Manual) 1.5 H Eosinophils # (Manual) 0.0 Basophils # (Manual) 0.0 Nucleated RBCs 2 Differential Comment MANUAL DIFFERENTIAL WBC Morphology NORMAL APPEARANCE Platelet Estimate NORMAL (130-450,000) Platelet Morphology NORMAL APPEARANCE RBC Morph Micro Appear 1+ ANISOCYTOSIS Sodium 136 Potassium 4.1 Chloride 104 Carbon Dioxide 23 Anion Gap 9.0 BUN 66 H Creatinine 2.2 H Estimated GFR (MDRD) 22 L Glucose 351 H POC Whole Bld Glucose Calcium 7.7 L Phosphorus 4.0 Magnesium 1.7 Total Bilirubin 0.8 Direct Bilirubin 0.4 AST 96 H ALT 106 H Alkaline Phosphatase 46 Ammonia Troponin I High Sens 45.0 H* Total Protein 5.1 L Albumin 2.6 L Globulin 2.5 Lipase Urine Color Urine Clarity Urine pH Ur Specific Douglas Urine Protein Urine Glucose (UA) Urine Ketones Urine Occult Blood Urine Nitrite Urine Bilirubin Urine Urobilinogen Ur Leukocyte Esterase Urine RBC Urine WBC Ur Squamous Epith Cells Urine Bacteria Urine Culture Comments Urine Sodium 09/11/19 09/11/19 09/11/19 05:00 05:55 07:33 WBC RBC Hgb Hct MCV MCH MCHC RDW Plt Count MPV Neut # (Auto) Lymph # (Auto) Mcpherson # (Auto) Eos # (Auto) Baso # (Auto) Absolute Nucleated RBC Total Counted Band Neuts % (Manual) Abnorm Lymph % (Manual) Nucleated RBC % Neutrophils # (Manual) Lymphocytes # (Manual) Monocytes # (Manual) Eosinophils # (Manual) Basophils # (Manual) Nucleated RBCs Differential Comment WBC Morphology Platelet Estimate Platelet Morphology RBC Morph Micro Appear Sodium Potassium Chloride Carbon Dioxide Anion Gap BUN Creatinine Estimated GFR (MDRD) Glucose POC Whole Bld Glucose 360 H 315 H Calcium Phosphorus Magnesium Total Bilirubin Direct Bilirubin AST ALT Alkaline Phosphatase Ammonia Troponin I High Sens Total Protein Albumin Globulin Lipase 19 L Urine Color Urine Clarity Urine pH Ur Specific Douglas Urine Protein Urine Glucose (UA) Urine Ketones Urine Occult Blood Urine Nitrite Urine Bilirubin Urine Urobilinogen Ur Leukocyte Esterase Urine RBC Urine WBC Ur Squamous Epith Cells Urine Bacteria Urine Culture Comments Urine Sodium 09/11/19 07:50 WBC RBC Hgb Hct MCV MCH MCHC RDW Plt Count MPV Neut # (Auto) Lymph # (Auto) Mcpherson # (Auto) Eos # (Auto) Baso # (Auto) Absolute Nucleated RBC Total Counted Band Neuts % (Manual) Abnorm Lymph % (Manual) Nucleated RBC % Neutrophils # (Manual) Lymphocytes # (Manual) Monocytes # (Manual) Eosinophils # (Manual) Basophils # (Manual) Nucleated RBCs Differential Comment WBC Morphology Platelet Estimate Platelet Morphology RBC Morph Micro Appear Sodium Potassium Chloride Carbon Dioxide Anion Gap BUN Creatinine Estimated GFR (MDRD) Glucose POC Whole Bld Glucose Calcium Phosphorus Magnesium Total Bilirubin Direct Bilirubin AST ALT Alkaline Phosphatase Ammonia 14.4 Troponin I High Sens Total Protein Albumin Globulin Lipase Urine Color Urine Clarity Urine pH Ur Specific Douglas Urine Protein Urine Glucose (UA) Urine Ketones Urine Occult Blood Urine Nitrite Urine Bilirubin Urine Urobilinogen Ur Leukocyte Esterase Urine RBC Urine WBC Ur Squamous Epith Cells Urine Bacteria Urine Culture Comments Urine Sodium - DIAGNOSTIC IMAGING Diagnostic Imaging Results: Final report reviewed - TIME SPENT Time Spent in Discharge (Minutes): 45"
[2019-09-11] MEDS: PANTOPRAZOLE 40 MG VIAL IVP SCH (08:27)
[2019-09-11] MEDS: INSULIN ASPART 300 UNIT/3 ML PEN SUBQ SCH ×2 (08:30→12:09)
--- NOTE | 2019-09-11 08:43 | CT Report ---
PROCEDURE: Abdomen/Pelvis WO INDICATIONS: Fever. Abdominal pain. STANLEY. Anemia. TECHNIQUE: Noncontrast 5 mm thick sections acquired from the diaphragms to the symphysis. 5 mm coronal and sagi ttal reformats were then performed. For radiation dose reduction, the following was used: automated exposure control, adjustment of mA and/or kV according to patient size. COMPARISON: Ultrasound abdomen 09/10/2019, CT abdomen pelvis 09/08/2019 FINDINGS: Image quality: Excellent. ABDOMEN: Lung bases: Mild left and minimal right pleural effusions are present with superimposed dependent nan nges. Heart size is normal. Heart is mildly prominent with trace effusion. Solid organs: Liver is cirrhotic in appearance. There has been development of mild perihepatic and p erisplenic fluid since prior exam. Spleen is unremarkable. Gallbladder has been removed Pancreas is atrophic. In the interval since the prior exam, there is a mildly edematous appearance of the pancrea s with peripancreatic stranding. Overall, there has been an interval increase of generalized mesenter ic fat stranding within the abdomen and pelvis. No adrenal nodules. Kidneys are normal in size, with out hydronephrosis or nephrolithiasis. Peritoneum and bowel: Unenhanced bowel loops are nonobstructive. There is thickening along the dista l aspect of the duodenal C-loop extending to the jejunum/proximal ileum appearing more prominent when compared to prior exam. Colonic diverticula are present. There is interval increased free fluid with in the abdomen and pelvis. Nodes and vessels: No retroperitoneal or mesenteric adenopathy by size criteria. Aorta and inferior vena cava are normal in caliber. Miscellaneous: Fat-containing ventral hernia is present. Hiatal hernia is present. PELVIS: Genitourinary: Bladder is collapsed with a Wesley catheter, limiting evaluation. Miscellaneous: Mild fat-containing inguinal hernias are present. Bones: No suspicious bony lesions. No vertebral body compression fractures. IMPRESSION: 1. Interval appearance of increased fluid and inflammatory change within the abdomen and pelvis as ab ove. The pancreas overall has a somewhat addendum this appearance compared to prior exam with peripan creatic stranding. This also extends through the level of the uncinate process to the distal duodenal C-loop/jejunal region. Appearance raises suspicion for interval development of pancreatitis with sec ondary small bowel inflammation. Less likely, although possible given appearance of more widespread i nflammation, source of inflammation could be duodenal/jejunal inflammation. 2. Interval pleural effusions with superimposed consolidation. 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 3. Hepatic cirrhosis. Reviewed by: Lynda White MD on 09/11/2019 8:42 AM PDT Approved by: Lynda White MD on 09/11/2019 8:42 AM PDT Station ID: [id number]
[2019-09-11] MEDS ORDERED: INSULIN GLARGINE 300 UNIT/3 ML PEN SUBQ SCH (09:00)
[2019-09-11] MEDS: SODIUM CHLORIDE 0.9% 1,000 ML IV SCH ×2 (10:48→10:50)
[2019-09-11 12:52] VITALS: BP 120/43
[2019-09-11] MEDS ORDERED: CEFEPIME 1 GM in SODIUM CHLORIDE 0.9% MINIBAG 100 ML IV SCH (21:00)
== END 2019-09-11 01:25 | disposition short-term general hospital (02) | DRG 377 ==
LOC: ED 16:35 → MS2 20:02
PROVIDERS: ADMIT Specialist; ATTEND Internal Medicine
PROC: 0D9670Z Drainage of Stomach with Drainage Device, Via Natural or Artificial Opening (ICD-10-PCS; 2019-09-08)
PROC: 0DJ08ZZ Inspection of Upper Intestinal Tract, Via Natural or Artificial Opening Endoscopic (ICD-10-PCS; principal; 2019-09-08 22:25)
PROC: 30233K1 Transfusion of Nonautologous Frozen Plasma into Peripheral Vein, Percutaneous Approach (ICD-10-PCS; 2019-09-09)
PROC: 30233N1 Transfusion of Nonautologous Red Blood Cells into Peripheral Vein, Percutaneous Approach (ICD-10-PCS; 2019-09-09)
DX: K92.2 Gastrointestinal hemorrhage, unspecified (principal); K57.31 Diverticulosis of large intestine without perforation or abscess with bleeding; J18.9 Pneumonia, unspecified organism; A41.9 Sepsis, unspecified organism; D62 Acute posthemorrhagic anemia; N17.9 Acute kidney failure, unspecified; E87.2 Acidosis; Z68.41 Body mass index [BMI] 40.0-44.9, adult; I24.8 Other forms of acute ischemic heart disease; Y95 Nosocomial condition; K22.9 Disease of esophagus, unspecified; R59.0 Localized enlarged lymph nodes; K74.60 Unspecified cirrhosis of liver; E11.9 Type 2 diabetes mellitus without complications; Z79.4 Long term (current) use of insulin; I10 Essential (primary) hypertension; G47.33 Obstructive sleep apnea (adult) (pediatric); E78.5 Hyperlipidemia, unspecified; E66.9 Obesity, unspecified; Z79.899 Other long term (current) drug therapy; R60.0 Localized edema; K75.81 Nonalcoholic steatohepatitis (NASH)
CPT/HCPCS: 36415; 71045; 74174; 74176; 76705; 80048; 80053; 80076; 81001; 82140; 83036; 83605; 83690; 83735; 84100; 84300; 84443; 84484; 85014; 85018; 85025; 85027; 85610; 85730; 86850; 86900; 86901; 86920; 87040; 87045; 87046; 87086; 93005; 96365; 99284; 99285; A9270; J1815; J7120; P9016; P9017; Q9967; 81003; 81599

== ENCOUNTER 2019-09-11 13:25 | Outpatient (CLI) | payer MEDICARE, OTHER | END 2019-09-11 13:26 | disposition short-term general hospital (02) | LOC: EMS 13:25 | PROVIDERS: ATTEND Surgery | DX: K92.2 Gastrointestinal hemorrhage, unspecified (principal); R07.9 Chest pain, unspecified | CPT/HCPCS: A0425; A0426 ==

== ENCOUNTER 2020-11-01 16:35 | Outpatient (CLI) | payer MEDICARE, OTHER ==
--- NOTE | 2020-11-08 08:42 | XRAY Report ---
PROCEDURE: Chest 2 View X-Ray INDICATIONS: COUGH TECHNIQUE: 2 view(s) of the chest. COMPARISON: None. FINDINGS: Surgical changes and devices: None. Lungs and pleura: No pleural effusions or pneumothorax. Chronic edematous changes are seen. No focal infiltrate. Mediastinum: Mediastinal contours are normal. Heart size is enlarged. Bones and chest wall: No suspicious bony abnormalities. Soft tissues appear unremarkable. IMPRESSION: COPD. No acute cardiopulmonary pathology. Reviewed by: Sterling Nichole MD on 11/01/2020 5:08 PM PDT Approved by: Sterling Nichole MD on 11/01/2020 5:08 PM PDT Station ID: [id number]
== END 2020-11-01 16:36 | disposition home or self-care (01) ==
LOC: DI 16:35
PROVIDERS: ATTEND Internal Medicine
DX: R05 Cough (principal); J44.9 Chronic obstructive pulmonary disease, unspecified

== ENCOUNTER 2021-03-21 16:20 | Outpatient (CLI) | payer MEDICARE, OTHER ==
[2021-03-21 16:59] LABS: CREATININE 0.9 mg/dL (0.4-1.0); POTASSIUM 4.4 mmol/L (3.5-5.0)
[2021-03-21 20:46] LABS: ESTIMATED AVERAGE GLUCOSE 206 mg/dL (70-100); HEMOGLOBIN A1c% 8.8 % (4.27-6.07)
== END 2021-03-21 16:21 | disposition home or self-care (01) ==
LOC: LAB.R 16:20
PROVIDERS: ATTEND Internal Medicine
DX: E11.42 Type 2 diabetes mellitus with diabetic polyneuropathy (principal)
CPT/HCPCS: 80048; 83036

== ENCOUNTER 2021-06-22 08:00 | Outpatient (CLI) | payer MEDICARE, OTHER ==
[2021-06-22 17:25] LABS: EOSINOPHILS # (AUTO) 0.1 10^3/uL (0.0-0.7); EOSINOPHILS % (AUTO) 3.6 %; HCT - HEMATOCRIT 38.7 % (37.0-47.0); HGB - HEMOGLOBIN 12.7 g/dL (12.0-16.0); LYMPHOCYTES # (AUTO) 0.8 10^3/uL (1.5-3.5); LYMPHOCYTES % (AUTO) 19.3 %; MEAN CORPUSCULAR HEMOGLOBIN 31.4 pg (27.0-31.0); MEAN CORPUSCULAR HGB CONC 32.8 g/dL (32.0-36.0); MEAN CORPUSCULAR VOLUME 95.8 fL (81.0-99.0); MEAN PLATELET VOLUME 11.5 fL (7.9-10.8); MONOCYTES # (AUTO) 0.4 10^3/uL (0.0-1.0); MONOCYTES % (AUTO) 9.6 %; NEUTROPHILS # (AUTO) 2.6 10^3/uL (1.5-6.6); NEUTROPHILS % (AUTO) 66.2 %; PLT - PLATELET COUNT 107 10^3/uL (130-450); RED BLOOD COUNT 4.04 10^6/uL (4.20-5.40); WHITE BLOOD COUNT 3.9 x10^3/uL (4.8-10.8)
[2021-06-22 17:50] LABS: ALBUMIN/GLOBULIN RATIO 1.1 (1.0-2.2); BILIRUBIN,TOTAL 1.2 mg/dL (0.2-1.0); CALCIUM 9.2 mg/dL (8.5-10.3); CREATININE 0.9 mg/dL (0.4-1.0); POTASSIUM 4.2 mmol/L (3.5-5.0); TOTAL PROTEIN 7.6 g/dL (6.7-8.2)
[2021-06-22 17:56] LABS: THYROID STIMULATING HORMONE 2.14 uIU/mL (0.34-5.60)
== END 2021-06-22 23:59 | disposition home or self-care (01) ==
LOC: LAB.R 08:00
PROVIDERS: ATTEND Internal Medicine
DX: R53.83 Other fatigue (principal); R63.5 Abnormal weight gain; J30.9 Allergic rhinitis, unspecified; M54.9 Dorsalgia, unspecified; R07.89 Other chest pain; E11.22 Type 2 diabetes mellitus with diabetic chronic kidney disease; N18.9 Chronic kidney disease, unspecified; R06.09 Other forms of dyspnea; K74.60 Unspecified cirrhosis of liver; L98.9 Disorder of the skin and subcutaneous tissue, unspecified; R39.9 Unspecified symptoms and signs involving the genitourinary system
CPT/HCPCS: 80053; 81599; 82607; 83036; 83880; 84443; 85025

== ENCOUNTER 2021-06-26 08:00 | Outpatient (CLI) | payer MEDICARE, OTHER ==
[2021-06-26 16:12] LABS: BILIRUBIN,URINE NEGATIVE (NEGATIVE); GLUCOSE, URINE (UA) NEGATIVE (NEGATIVE); KETONES,URINE (UA) NEGATIVE (NEGATIVE); LEUKOCYTE ESTERASE, URINE NEGATIVE (NEGATIVE); NITRITE,URINE NEGATIVE (NEGATIVE); OCCULT BLOOD,URINE NEGATIVE (NEGATIVE); PROTEIN,URINE NEGATIVE (NEGATIVE); UROBILINOGEN,URINE 0.2 (NORMAL) E.U./dL (NORMAL)
[2021-06-26 16:20] LABS: CLARITY,URINE CLEAR (CLEAR)
[2021-06-26 16:39] LABS: BACTERIA,URINE Rare /HPF (None Seen); RBC,URINE 0-5 /HPF (0-5); SQUAMOUS EPITHELIAL CELL,UR FEW Squamous (<= Few); WBC,URINE 0-3 /HPF (0-5)
== END 2021-06-26 08:01 | disposition home or self-care (01) ==
LOC: LAB.R 08:00
PROVIDERS: ATTEND Internal Medicine
DX: R53.83 Other fatigue (principal); R39.9 Unspecified symptoms and signs involving the genitourinary system; R63.5 Abnormal weight gain
CPT/HCPCS: 81001; 87086

== ENCOUNTER 2021-08-10 08:47 | Outpatient (CLI) | payer MEDICARE, OTHER ==
--- NOTE | 2021-08-10 13:03 | Ultrasound Report ---
PROCEDURE: Abdomen Complete INDICATIONS: CIRRHOSIS TECHNIQUE: Real-time scanning was performed of the abdominal and retroperitoneal organs, with image documentation. COMPARISON: 09/11/2019 CT abdomen and pelvis FINDINGS: Liver: Cirrhotic liver features. Limited sonographic evaluation demonstrates no evidence of liver mas s. Gallbladder: Cholecystectomy. Biliary ducts: Nondilated. Pancreas: Visualized portions of the pancreas are sonographically normal. Spleen: Spleen is normal in size and homogeneous in echotexture. Kidneys: No shadowing calculus or hydronephrosis. Cyst in the hilum likely a peripelvic or parapelvic cyst measuring 5 cm. Aorta: Visualized aorta is normal in caliber at less than 3 cm. Iliacs: Proximal common iliac arteries are normal in caliber at less than 2.5 cm. IVC: Intrahepatic inferior vena cava is patent. Miscellaneous: No free abdominal fluid. IMPRESSION: Cirrhosis with no gross evidence of liver mass, evaluation limited by body habitus. Reviewed by: Javier Perez MD on 08/10/2021 1:02 PM PDT Approved by: Javier Perez MD on 08/10/2021 1:02 PM PDT Station ID: [id number]
== END 2021-08-10 08:48 | disposition home or self-care (01) ==
LOC: DI 08:47
PROVIDERS: ATTEND Internal Medicine
DX: K74.60 Unspecified cirrhosis of liver (principal)

== ENCOUNTER 2023-02-21 13:13 | Outpatient (CLI) | payer MEDICARE, OTHER ==
[2023-02-21 13:43] LABS: BASOPHILS % (AUTO) 0.9 %; EOSINOPHILS # (AUTO) 0.2 10^3/uL (0.0-0.7); HCT - HEMATOCRIT 38.6 % (37.0-47.0); HGB - HEMOGLOBIN 12.8 g/dL (12.0-16.0); LYMPHOCYTES # (AUTO) 0.9 10^3/uL (1.5-3.5); LYMPHOCYTES % (AUTO) 20.6 %; MEAN CORPUSCULAR HEMOGLOBIN 32.3 pg (27.0-31.0); MEAN CORPUSCULAR HGB CONC 33.2 g/dL (32.0-36.0); MEAN CORPUSCULAR VOLUME 97.5 fL (81.0-99.0); MEAN PLATELET VOLUME 10.2 fL (7.9-10.8); MONOCYTES # (AUTO) 0.5 10^3/uL (0.0-1.0); MONOCYTES % (AUTO) 11.3 %; NEUTROPHILS # (AUTO) 2.6 10^3/uL (1.5-6.6); NEUTROPHILS % (AUTO) 61.7 %; PLT - PLATELET COUNT 107 10^3/uL (130-450); RED BLOOD COUNT 3.96 10^6/uL (4.20-5.40); WHITE BLOOD COUNT 4.2 x10^3/uL (4.8-10.8)
[2023-02-21 13:53] LABS: INR 1.2 (0.8-1.2); PT - PROTHROMBIN TIME 13.1 secs (9.9-12.6)
[2023-02-21 13:59] LABS: ALBUMIN 3.9 g/dL (3.2-5.5); ALBUMIN/GLOBULIN RATIO 1.2 (1.0-2.2); BILIRUBIN,TOTAL 1.2 mg/dL (0.2-1.0); CALCIUM 9.2 mg/dL (8.5-10.3); CREATININE 0.9 mg/dL (0.6-1.3); TOTAL PROTEIN 7.2 g/dL (6.4-8.9)
[2023-02-22 03:10] LABS: HBsAG SCREEN Negative (Negative); HCV AB Non Reactive (Non Reactive); HEPATITIS B CORE IGM AB Negative (Negative)
== END 2023-02-21 13:14 | disposition home or self-care (01) ==
LOC: LAB 13:13
PROVIDERS: ATTEND Physician Assistant
DX: K74.60 Unspecified cirrhosis of liver (principal)
CPT/HCPCS: 36415; 80053; 80074; 85025; 85610